=== PATIENT | male | born 1970 | race Caucasian/White ===

== ENCOUNTER 2016-08-23 09:14 | Emergency (ER) | payer OTHER ==
[2016-08-23 09:19] VITALS: RESP 17
--- NOTE | 2016-08-23 09:42 | ED ---
General Adult HPI - General Chief complaint: Extremity Injury, Lower Stated complaint: Rt knee pain Time Seen by Provider: 08/23/16 09:30 Source: patient, RN notes reviewed Mode of arrival: ambulatory Limitations: no limitations - History of Present Illness Initial comments: Patient 46-year-old male who presents emergency room today with a chief complaint of swelling to the right knee. He does admit that he missed work the last 2 days. States that his work stated that he needed a work note return to work that is the reason that he came here today. He does admit that he's had chronic infections to the right knee. States recently finished an antibiotic. States the swelling has improved. States he feels that he is comfortable to go back to work at this time. He does admit that he is trying follow-up with orthopedics. He states [facility] will not [facility] him he is waiting for his insurance to switch to go to a new doctor. Patient denies any other complaints or symptoms. He denies any injury or trauma to the area. Patient denies any recent fever, chills, shortness of breath, chest pain, back pain, abdominal pain, nausea or vomiting, numbness or tingling, dysuria or hematuria, constipation or diarrhea, headaches or visual changes, or any other complaints. - Related Data Previous Rx's Medication Instructions Recorded Sulfamethox-Tmp 800-160Mg [Bactrim 1 tab PO Q12HR #28 tab 08/23/16 DS 800-160 mg] Allergies Allergy/AdvReac Type Severity Reaction Status Date / Time No Known Allergies Allergy Verified 08/23/16 09:29 Review of Systems ROS Statement: Those systems with pertinent positive or pertinent negative responses have been documented in the HPI. ROS Other: All systems not noted in ROS Statement are negative. Past Medical History Additional Past Medical History / Comment(s): chronic back pain History of Any Multi-Drug Resistant Organisms: MRSA Date of last positivie culture/infection: 07/07/2015 MDRO Source:: right knee Additional Past Surgical History / Comment(s): right knee Past Psychological History: No Psychological Hx Reported Smoking Status: Current every day smoker Past Alcohol Use History: None Reported Past Drug Use History: None Reported General Exam - General Exam Comments Initial Comments: General: The patient is awake and alert, in no distress, and does not appear acutely ill. Neck: The neck is supple, there is no tenderness or JVD. Cardiovascular: There is a regular rate and rhythm. No murmur, rub or gallop is appreciated. Respiratory: Lungs are clear to auscultation, respirations are non-labored, breath sounds are equal. No wheezes, stridor, rales, or rhonchi. Musculoskeletal: Patient does have some mild swelling compared bilaterally. No bony tenderness on exam. Shows full range motion. Sensation intact pulses equal bilaterally 2+. Strength 5/5. Neurological: A&O x 3. CN II-XII intact, There are no obvious motor or sensory deficits. Coordination appears grossly intact. Speech is normal. Skin: Skin is warm and dry and no rashes or lesions are noted. Psychiatric: Normal mood and affect. Limitations: no limitations Course Vital Signs 08/23/16 09:15 Temperature 97.7 F Pulse Rate 90 Respiratory 17 Rate Blood Pressure 127/79 O2 Sat by Pulse 97 Oximetry Medical Decision Making - Medical Decision Making Patient advised to follow-up with orthopedics. Will be given a prescription for Bactrim to use if symptoms increase or worsen or for any other concerns. Advised to return here for any other complaints. Disposition Clinical Impression: Chronic knee pain Disposition: HOME SELF-CARE Condition: Good Instructions: Knee Pain (ED) Additional Instructions: Please follow-up with orthopedics as soon as possible. Please use antibiotic as prescribed. Please return if any symptoms increase or worsen or for any other concerns. Prescriptions: Sulfamethox-Tmp 800-160Mg [Bactrim DS 800-160 mg] 1 tab PO Q12HR #28 tab Time of Disposition: 09:42
[2016-08-23 10:04] VITALS: BP 124/78; PULSE 56; TEMP 98.4
== END 2016-08-23 10:03 | disposition home or self-care (01) ==
LOC: EC 09:14
DX: G89.29 Other chronic pain (principal); M25.561 Pain in right knee; F17.200 Nicotine dependence, unspecified, uncomplicated; Z86.19 Personal history of other infectious and parasitic diseases
CPT/HCPCS: 99283

== ENCOUNTER 2016-09-05 14:38 | Emergency (ER) | payer OTHER ==
[2016-09-05 14:45] VITALS: BP 126/66; PULSE 65; RESP 18; TEMP 97.8
--- NOTE | 2016-09-05 14:58 | ED ---
General Adult HPI - General Chief complaint: Extremity Problem,Nontraumatic Stated complaint: Knee Pain Time Seen by Provider: 09/05/16 14:45 Source: patient, RN notes reviewed Mode of arrival: ambulatory Limitations: no limitations - History of Present Illness Initial comments: This is a 46-year-old male who presents with chronic right knee pain. Patient states he has noticed some increased swelling and states he had surgery a few years ago to the patella. Patient denies any recent injury. Patient is able to ambulate. Patient is requesting pain medication stating that he cannot get into a pain management doctor for 2 months. Patient states his primary care provider will not give him pain medication. Patient states he has flareups every now and then. Patient denies any numbness/weakness or tingling in the bilateral lower extremities. Patient denies any recent fever, chills, shortness breath, chest pain, abdominal pain, nausea/vomiting/diarrhea, back pain, numbness, tingling, hematuria, headache, or visual changes, or any other complaints. - Related Data Previous Rx's Medication Instructions Recorded Sulfamethox-Tmp 800-160Mg [Bactrim 1 tab PO Q12HR #28 tab 08/23/16 DS 800-160 mg] HYDROcodone/APAP 5-325MG [[place] 1 tab PO Q6HR #7 tab 09/05/16 5-325] Allergies Allergy/AdvReac Type Severity Reaction Status Date / Time No Known Allergies Allergy Verified 09/05/16 14:45 Review of Systems ROS Statement: Those systems with pertinent positive or pertinent negative responses have been documented in the HPI. ROS Other: All systems not noted in ROS Statement are negative. Past Medical History Additional Past Medical History / Comment(s): chronic back pain, KNEE PAIN History of Any Multi-Drug Resistant Organisms: MRSA Date of last positivie culture/infection: 07/07/2015 MDRO Source:: right knee Additional Past Surgical History / Comment(s): right knee Past Psychological History: No Psychological Hx Reported Smoking Status: Current every day smoker Past Alcohol Use History: None Reported Past Drug Use History: None Reported General Exam - General Exam Comments Initial Comments: General: The patient is awake and alert, in no distress, and does not appear acutely ill. Neck: The neck is supple, there is no tenderness or JVD. Cardiovascular: There is a regular rate and rhythm. No murmur, rub or gallop is appreciated. Respiratory: Lungs are clear to auscultation, respirations are non-labored, breath sounds are equal. No wheezes, stridor, rales, or rhonchi. Musculoskeletal: There is mild swelling to the right knee but no erythema or warmth. No sign of infection. Well-healed surgical scar to the right knee. No tenderness on exam. Full range of motion, strength 5/5 and Sensation intact. Posterior tibial pulses 2+ bilaterally. Neurological: A&O x 3. CN II-XII intact, There are no obvious motor or sensory deficits. Coordination appears grossly intact. Speech is normal. Skin: Skin is warm and dry and no rashes or lesions are noted. Psychiatric: Normal mood and affect. Limitations: no limitations Course Vital Signs 09/05/16 14:42 Temperature 97.8 F Pulse Rate 65 Respiratory 18 Rate Blood Pressure 126/66 O2 Sat by Pulse 100 Oximetry Medical Decision Making - Medical Decision Making This is a 46-year-old male presents with right knee pain that is chronic for him. On physical exam patient is able to ambulate. There is mild swelling to the right knee but no erythema or warmth. No sign of infection. Well-healed surgical scar to the right knee. No tenderness on exam. Full range of motion, strength 5/5 and Sensation intact. Posterior tibial pulses 2+ bilaterally. X- ray the right knee was done and reviewed showing: #1 no acute fracture or dislocation. Number to postsurgical change with prepatellar and Cipro Stock Taker soft tissue edema. Reported by Dr. Green. I discussed results with patient. Patient is requesting [place] stating he cannot get into his pain management doctor. I discussed Tylenol, Motrin/ naproxen for pain, ice and heat. I discussed that patient needs to follow-up with the pain management doctor as planned. I discussed return parameters. Patient was given a primary care referral today. Discussed that patient should follow up with PCP in one to 2 days or return to the [facility] for any worsening symptoms or for any further concerns. Patient was receptive to this plan and patient will be discharged home. Disposition Clinical Impression: Chronic pain of right knee Disposition: HOME SELF-CARE Condition: Good Instructions: Knee Pain (ED) Additional Instructions: Please use pain medication as prescribed for breakthrough pain otherwise use Tylenol, Motrin/Aleve. Please use ice for the swelling. Please continue follow -up with pain management doctor. Please follow-up with the primary care physician in one to 2 days or return to the [facility] for any worsening symptoms or any further concerns. Prescriptions: HYDROcodone/APAP 5-325MG [[place] 5-325] 1 tab PO Q6HR #7 tab Referrals: None,Stated [Primary Care Provider] - 1-2 days Patti Joseph MD [REFERRING] - 1-2 days Sadie Vazquez III, MD [STAFF PHYSICIAN] - 1-2 days Time of Disposition: 15:31
--- NOTE | 2016-09-05 15:15 | XR ---
EXAMINATION TYPE: XR knee complete RT DATE OF EXAM: 09/05/2016 3:10 PM COMPARISON: NONE HISTORY: 05/29/2015 FINDINGS: Postsurgical changes are stable. There is mild diffuse osteopenia. Soft tissue edema in the prepatell ar and suprapatellar regions are noted. No acute fracture. No dislocation. IMPRESSION: 1. No acute fracture or dislocation. 2. Postsurgical change with prepatellar and suprapatellar soft tissue edema.
== END 2016-09-05 15:37 | disposition home or self-care (01) ==
LOC: EC 14:38
DX: M25.561 Pain in right knee (principal); G89.29 Other chronic pain; F17.200 Nicotine dependence, unspecified, uncomplicated
CPT/HCPCS: 99283

== ENCOUNTER 2016-10-19 14:57 | Emergency (ER) | payer OTHER ==
[2016-10-19 15:01] VITALS: BP 132/68; PULSE 69; RESP 20; TEMP 97.9
--- NOTE | 2016-10-19 15:33 | ED ---
General Adult HPI - General Chief complaint: Extremity Problem,Nontraumatic Stated complaint: Knee Pain Time Seen by Provider: 10/19/16 15:16 Source: patient, RN notes reviewed Mode of arrival: ambulatory Limitations: no limitations - History of Present Illness Initial comments: This is a 46-year-old male presents with chronic right knee pain. Patient states he had a surgery back in 2011 and has had problems ever since. Patient states a couple years after the surgery he has had metal from the surgery protruding from the right knee. Patient has been dealing with recurrent infection and pain to this right knee chronically. Patient states he has a follow-up with appointment with the original surgeon, but he cannot get into see him until February. Patient has tried multiple local orthopedic offices but they will not see him. Patient states his primary care physician has referred him to a pain management doctor but he is unable to see this doctor for another 2-3 weeks. Patient states his primary care doctor will not prescribe him [place]. Patient states he was recently on a course of Bactrim. Patient states his knee swelling has improved but he still notices some mild swelling. Patient states he is able to ambulate but this is painful. Patient denies any numbness/tingling or weakness. Patient denies any fever or chills. Patient denies any recent fever, chills, shortness breath, chest pain, abdominal pain, nausea/vomiting/diarrhea, back pain, hematuria, headache, or visual changes, or any other complaints. - Related Data Previous Rx's Medication Instructions Recorded Sulfamethox-Tmp 800-160Mg [Bactrim 1 tab PO Q12HR #28 tab 08/23/16 DS 800-160 mg] HYDROcodone/APAP 5-325MG [[place] 1 tab PO Q6HR #7 tab 09/05/16 5-325] HYDROcodone/APAP 5-325MG [[place] 1 tab PO Q6HR #12 tab 10/19/16 5-325] Sulfamethox-Tmp 800-160Mg [Bactrim 1 tab PO Q12HR #20 tab 10/19/16 DS 800-160 mg] Allergies Allergy/AdvReac Type Severity Reaction Status Date / Time No Known Allergies Allergy Verified 10/19/16 15:01 Review of Systems ROS Statement: Those systems with pertinent positive or pertinent negative responses have been documented in the HPI. ROS Other: All systems not noted in ROS Statement are negative. Past Medical History Additional Past Medical History / Comment(s): chronic back pain, KNEE PAIN History of Any Multi-Drug Resistant Organisms: MRSA Date of last positivie culture/infection: 07/07/2015 MDRO Source:: right knee Additional Past Surgical History / Comment(s): right knee Past Psychological History: No Psychological Hx Reported Smoking Status: Current every day smoker Past Alcohol Use History: None Reported Past Drug Use History: None Reported General Exam - General Exam Comments Initial Comments: General: The patient is awake and alert, in no distress, and does not appear acutely ill. Neck: The neck is supple, there is no tenderness or JVD. Cardiovascular: There is a regular rate and rhythm. No murmur, rub or gallop is appreciated. Respiratory: Lungs are clear to auscultation, respirations are non-labored, breath sounds are equal. No wheezes, stridor, rales, or rhonchi. Musculoskeletal: There is mild tenderness to palpation over the anterior aspect of the right knee with mild localized swelling, no erythema or ecchymosis. There is a well-healed surgical scar present. Patient has full range of motion , strength 5/5 and Sensation intact. Posterior tibial pulses 2+ bilaterally. Neurological: A&O x 3. CN II-XII intact, There are no obvious motor or sensory deficits. Coordination appears grossly intact. Speech is normal. Skin: Skin is warm and dry and no rashes or lesions are noted. Psychiatric: Normal mood and affect. Limitations: no limitations Course Vital Signs 10/19/16 14:59 Temperature 97.9 F Pulse Rate 69 Respiratory 20 Rate Blood Pressure 132/68 O2 Sat by Pulse 98 Oximetry Medical Decision Making - Medical Decision Making This is a 46-year-old male patient with chronic right knee pain. On physical exam patient is afebrile and well-appearing EC. There is mild tenderness to palpation over the anterior aspect of the right knee with mild localized swelling, no erythema or ecchymosis. There is a well-healed surgical scar present. Patient has full range of motion, strength 5/5 and Sensation intact. Posterior tibial pulses 2+ bilaterally. Discussed that patient will be put on a short course of antibiotics and given a short course of pain medication. I discussed that he will have to follow up with his pain management doctor for any further pain medication. I discussed return parameters. Discussed use of Motrin and ice and to use [place] only for breakthrough pain.Discussed that patient should follow up with PCP in one to 2 days or return to the [facility] for any worsening symptoms or for any further concerns. Patient was receptive to this plan and patient will be discharged home. Disposition Clinical Impression: Chronic pain of right knee Disposition: HOME SELF-CARE Condition: Good Instructions: Knee Pain (ED) Additional Instructions: Please rest, ice, elevate and use Motrin for the pain. Please use [place] only for breakthrough pain. Please follow-up with her pain management physician for any further pain medication prescriptions. Please take antibiotics as prescribed. Please follow-up with her primary care provider in one to 2 days or return to the [facility] for any worsening symptoms or for any further concerns. Prescriptions: HYDROcodone/APAP 5-325MG [[place] 5-325] 1 tab PO Q6HR #12 tab Sulfamethox-Tmp 800-160Mg [Bactrim DS 800-160 mg] 1 tab PO Q12HR #20 tab Referrals: Doyle Davis MD [Primary Care Provider] - 1-2 days Time of Disposition: 15:33
== END 2016-10-19 15:38 | disposition home or self-care (01) ==
LOC: EC 14:57
DX: G89.29 Other chronic pain (principal); M25.561 Pain in right knee; M79.89 Other specified soft tissue disorders; F17.200 Nicotine dependence, unspecified, uncomplicated; Z98.890 Other specified postprocedural states
CPT/HCPCS: 99283

== ENCOUNTER 2016-11-22 14:28 | Emergency (ER) | payer OTHER ==
[2016-11-22 14:36] VITALS: BP 127/81; PULSE 74; RESP 20; TEMP 99
--- NOTE | 2016-11-22 15:00 | ED ---
Lower Extremity Injury HPI - General Chief Complaint: Extremity Injury, Lower Stated Complaint: rt knee pain Time Seen by Provider: 11/22/16 14:45 Source: patient, RN notes reviewed, old records reviewed Mode of arrival: ambulatory Limitations: no limitations - History of Present Illness Initial Comments: Patient is a 46-year-old male with chief complaint of right knee pain. Patient reports that he had surgery for patella fracture in 2011. Patient states that since then he's had a lot of problems with his knee. states that the hardware in his patella are coming out of the bone and rubbing on the superficial skin. Patient states that he's been off and on antibiotics for the past year. He states that he occasionally to have pain medicine from an emergency room physician because his primary care provider will not write him for anything. He states that he does have an appointment with his original orthopedic up with the wires in his leg at the end of February. Patient states that he has not been able to see them until then. - Related Data Previous Rx's Medication Instructions Recorded HYDROcodone/APAP 5-325MG [[place] 1 tab PO Q6HR PRN #12 tab 11/22/16 5-325] Sulfamethox-Tmp 800-160Mg [Bactrim 1 tab PO Q12HR #14 tab 11/22/16 DS 800-160 mg] Allergies Allergy/AdvReac Type Severity Reaction Status Date / Time No Known Allergies Allergy Verified 11/22/16 14:36 Review of Systems ROS Statement: Those systems with pertinent positive or pertinent negative responses have been documented in the HPI. ROS Other: All systems not noted in ROS Statement are negative. Past Medical History Additional Past Medical History / Comment(s): chronic back pain, KNEE PAIN History of Any Multi-Drug Resistant Organisms: MRSA Date of last positivie culture/infection: 07/07/2015 MDRO Source:: right knee Additional Past Surgical History / Comment(s): right knee Past Psychological History: No Psychological Hx Reported Smoking Status: Current every day smoker Past Alcohol Use History: None Reported Past Drug Use History: None Reported General Exam Limitations: no limitations General appearance: alert, in no apparent distress Head exam: Present: atraumatic, normocephalic, normal inspection Eye exam: Present: normal appearance, PERRL, EOMI. Absent: scleral icterus, conjunctival injection, periorbital swelling ENT exam: Present: normal exam, mucous membranes moist Neck exam: Present: normal inspection. Absent: tenderness, meningismus, lymphadenopathy Respiratory exam: Present: normal lung sounds bilaterally. Absent: respiratory distress, wheezes, rales, rhonchi, stridor Cardiovascular Exam: Present: regular rate, normal rhythm, normal heart sounds. Absent: systolic murmur, diastolic murmur, rubs, gallop, clicks GI/Abdominal exam: Present: soft, normal bowel sounds. Absent: distended, tenderness, guarding, rebound, rigid Extremities exam: Present: normal inspection, full ROM, normal capillary refill. Absent: tenderness, pedal edema, joint swelling, calf tenderness Right Upper Leg exam: Present: normal inspection, full ROM Knee exam: Present: full ROM, tenderness (Tenderness and swelling of her suprapatellar area.), swelling, deformity. Absent: normal inspection Lower Leg exam: Present: normal inspection, full ROM Ankle exam: Present: normal inspection, full ROM Foot/Toe exam: Present: normal inspection, full ROM Neurovascular tendon exam: Present: no vascular compromise Gait: observed and normal Back exam: Present: normal inspection Neurological exam: Present: alert, oriented X3, CN II-XII intact Psychiatric exam: Present: normal affect, normal mood Skin exam: Present: warm, dry, intact, normal color. Absent: rash Course Vital Signs 11/22/16 14:33 Temperature 99 F Pulse Rate 74 Respiratory 20 Rate Blood Pressure 127/81 O2 Sat by Pulse 98 Oximetry Medical Decision Making - Medical Decision Making Patient is a 46-year-old male with chief complaint of right knee pain. Patient reports that he had surgery for patella fracture in 2011. Patient states that since then he's had a lot of problems with his knee. states that the hardware in his patella are coming out of the bone and rubbing on the superficial skin. Patient states that he's been off and on antibiotics for the past year. He states that he occasionally to have pain medicine from an emergency room physician because his primary care provider will not write him for anything. He states that he does have an appointment with his original orthopedic up with the wires in his leg at the end of February. Patient's x-ray shows evidence of previous surgery. No evidence of any acute changes. Patient' s knee does have full range of motion. DTRs intact. Patient has 2+ dorsalis pedis pulses. Normal sensation in the lower leg. Patient is warm and there is some significant swelling in the knee. Patient case discussed with Dr. White. The patient on medication for breakthrough pain. Discussed close follow-up with his orthopedic physician. Patient is still concerning may be some infection. Discussed that no significant signs of infection at this time however I will write the patient for Bactrim and he is to use PRESCRIPTION for the next few days if he gets worse to start taking. Patient agrees to treat plan will comply. Return parameters were discussed. - Radiology Data Radiology results: report reviewed X-ray shows no acute fracture dislocation. Disposition Clinical Impression: Right knee pain, Suprapatellar bursitis of right knee Disposition: HOME SELF-CARE Condition: Good Instructions: Knee Pain (ED) Additional Instructions: Patient is to follow-up with her orthopedic is soft. Patient needs to rest, ice and elevate extremity. Take pain medication only for breakthrough pain continue use Motrin. Patient should return to the emergency department if there are any fever or chills or significant redness over the knee. Prescriptions: HYDROcodone/APAP 5-325MG [[place] 5-325] 1 tab PO Q6HR PRN #12 tab PRN Reason: Pain Sulfamethox-Tmp 800-160Mg [Bactrim DS 800-160 mg] 1 tab PO Q12HR #14 tab Referrals: Doyle Davis MD [Primary Care Provider] - 1-2 days Time of Disposition: 15:30
--- NOTE | 2016-11-22 15:24 | XR ---
EXAMINATION TYPE: XR knee complete RT DATE OF EXAM: 11/22/2016 3:13 PM CLINICAL HISTORY: Right knee pain. History of patellar fracture. TECHNIQUE: Three views of the right knee are obtained. COMPARISON: Right knee x-ray September 05, 2016 FINDINGS: There is no new acute fracture/dislocation evident in right knee. Fixating screw and cercl age wires through subacute or chronic comminuted patellar fracture are redemonstrated. There is mild tricompartment joint space loss redemonstrated. Mild spurring patellofemoral compartment is seen. Mil d to moderate anterior soft tissue swelling is noted. IMPRESSION: There is no new acute fracture or dislocation in the right knee.
== END 2016-11-22 15:32 | disposition home or self-care (01) ==
LOC: EC 14:28
DX: M70.41 Prepatellar bursitis, right knee (principal); M25.561 Pain in right knee; F17.200 Nicotine dependence, unspecified, uncomplicated; Z98.890 Other specified postprocedural states; Y93.89 Activity, other specified
CPT/HCPCS: 99284

== ENCOUNTER 2016-12-05 12:33 | Emergency (ER) | payer OTHER ==
[2016-12-05 12:47] VITALS: BP 122/67; PULSE 75; RESP 18; TEMP 97.2
--- NOTE | 2016-12-05 13:02 | ED ---
Lower Extremity Injury HPI - General Chief Complaint: Extremity Injury, Lower Stated Complaint: Right Knee Pain Time Seen by Provider: 12/05/16 12:37 Source: patient, RN notes reviewed Mode of arrival: ambulatory Limitations: no limitations - History of Present Illness Initial Comments: 46-year-old male presents emergency department for chronic knee pain. Patient has ongoing issue with his right knee after having patellar tendon rupture and surgery. Patient's had battles with infections in recurrent joint effusions. Patient has been to the ER and states he has been to multiple ERs because his primary care physician does not uses insurance anymore. Patient states his breathing. Patient states he was told is in the seen by pain management though he has not been. Patient has appointment with his surgeon in February. He states this was the soonest appointment that he could have further office. Patient states that his surgeon is out of [facility]. Patient denies any trauma. Patient states this has chronic pain from this. Patient denies any paresthesias. Patient offers no complaints. - Related Data Previous Rx's Medication Instructions Recorded HYDROcodone/APAP 5-325MG [[place] 1 tab PO Q6HR PRN #12 tab 11/22/16 5-325] Sulfamethox-Tmp 800-160Mg [Bactrim 1 tab PO Q12HR #14 tab 11/22/16 DS 800-160 mg] Hydrocodone/Acetaminophen [[place] 1 tab PO Q6HR PRN #15 tab 12/05/16 5-325] Allergies Allergy/AdvReac Type Severity Reaction Status Date / Time No Known Allergies Allergy Verified 11/22/16 14:36 Review of Systems ROS Statement: Those systems with pertinent positive or pertinent negative responses have been documented in the HPI. ROS Other: All systems not noted in ROS Statement are negative. Past Medical History Additional Past Medical History / Comment(s): chronic back pain, KNEE PAIN History of Any Multi-Drug Resistant Organisms: MRSA Date of last positivie culture/infection: 07/07/2015 MDRO Source:: right knee Additional Past Surgical History / Comment(s): right knee Past Psychological History: No Psychological Hx Reported Smoking Status: Current every day smoker Past Alcohol Use History: None Reported Past Drug Use History: None Reported General Exam Limitations: no limitations General appearance: alert, in no apparent distress Respiratory exam: Present: normal lung sounds bilaterally. Absent: respiratory distress, wheezes, rales, rhonchi, stridor Cardiovascular Exam: Present: regular rate, normal rhythm, normal heart sounds. Absent: systolic murmur, diastolic murmur, rubs, gallop, clicks Extremities exam: Present: full ROM (Mild discomfort), other (Minimal swelling of the joint). Absent: normal inspection (Old surgical scar noted) Skin exam: Present: warm, dry Course Vital Signs 12/05/16 12:45 Temperature 97.2 F L Pulse Rate 75 Respiratory 18 Rate Blood Pressure 122/67 O2 Sat by Pulse 97 Oximetry Medical Decision Making - Medical Decision Making 46-year-old male presented for right knee pain. Patient's pain is chronic in nature. I did have discussion with the patient regarding his frequent hospital visits to multiple ERs. He did admit to this. He states that he cannot see his primary care physician due to his insurance reasons. I did offer him multiple pain management sites including Dr. Yuriy Ruiz and a primary care physician environmental aid Dr. Hayden. Patient agrees to this plan. He does understand that it appears that he is drug-seeking. Patient will follow-up with his surgeon as scheduled appointment. Return parameters were discussed. Disposition Clinical Impression: Chronic patellofemoral pain of right knee Disposition: HOME SELF-CARE Condition: Stable Instructions: Knee Pain (ED) Additional Instructions: Please follow up with primary care physician or pain management for further pain medication.Please return to the Emergency Department if symptoms worsen or any other concerns. Prescriptions: Hydrocodone/Acetaminophen [[place] 5-325] 1 tab PO Q6HR PRN #15 tab PRN Reason: Pain Referrals: Patti Joseph MD [REFERRING] - 1-2 days Fredy Ruiz MD [STAFF PHYSICIAN] - 1-2 days Gina Yan MD [STAFF PHYSICIAN] - 1-2 days Time of Disposition: 13:01
== END 2016-12-05 13:14 | disposition home or self-care (01) ==
LOC: EC 12:33
DX: G89.29 Other chronic pain (principal); M25.561 Pain in right knee; M25.461 Effusion, right knee; F17.200 Nicotine dependence, unspecified, uncomplicated; Z86.14 Personal history of Methicillin resistant Staphylococcus aureus infection
CPT/HCPCS: 99283

== ENCOUNTER 2016-12-12 12:24 | Emergency (ER) | payer OTHER ==
[2016-12-12 12:56] VITALS: BP 136/80; PULSE 78; RESP 16; TEMP 98.6
--- NOTE | 2016-12-12 13:09 | ED ---
Lower Extremity Injury HPI - General Chief Complaint: Extremity Injury, Lower Stated Complaint: Right Knee Pain Time Seen by Provider: 12/12/16 12:57 Source: patient, RN notes reviewed Mode of arrival: ambulatory Limitations: no limitations - History of Present Illness Initial Comments: Patient is a 46-year-old male presents emergency room for evaluation of right chronic knee pain. Patient states in 2011 he had a patellar tendon rupture and needed surgery. Patient states been having ongoing pain ever since. Patient has had issues with infections and recurrent joint effusions. Patient states he 's been to the emergency room multiple times because his primary care provider will not take his insurance. Patient states orthopedic associates will not see him. Patient states today this past week and he was doing a lot of work on his knee and noticed swelling. Patient states he thinks he needs to be placed on antibiotics again. Patient states he was recently placed on antibiotics the beginning of this month. Patient has not seen a pain management nurse practitioner yet. Patient states the soonest appointment with his surgeon is not until February. Patient states that his surgeon is out of [facility]. Patient denies any trauma. Patient denies any paresthesias. Patient offers no complaints. Patient denies fevers or chills. Patient denies recent trauma or reinjury to his knee. - Related Data Previous Rx's Medication Instructions Recorded HYDROcodone/APAP 5-325MG [[place] 1 tab PO Q6HR PRN #12 tab 11/22/16 5-325] Sulfamethox-Tmp 800-160Mg [Bactrim 1 tab PO Q12HR #14 tab 11/22/16 DS 800-160 mg] Hydrocodone/Acetaminophen [[place] 1 tab PO Q6HR PRN #15 tab 12/05/16 5-325] Cephalexin [Keflex] 500 mg PO Q6HR #40 cap 12/12/16 Allergies Allergy/AdvReac Type Severity Reaction Status Date / Time No Known Allergies Allergy Verified 12/12/16 12:56 Review of Systems ROS Statement: Those systems with pertinent positive or pertinent negative responses have been documented in the HPI. ROS Other: All systems not noted in ROS Statement are negative. Past Medical History Additional Past Medical History / Comment(s): chronic back pain, KNEE PAIN History of Any Multi-Drug Resistant Organisms: MRSA Date of last positivie culture/infection: 07/07/2015 MDRO Source:: right knee Additional Past Surgical History / Comment(s): right knee Past Psychological History: No Psychological Hx Reported Smoking Status: Current every day smoker Past Alcohol Use History: None Reported Past Drug Use History: None Reported General Exam - General Exam Comments Initial Comments: Sitting in exam room, no acute distress. Limitations: no limitations General appearance: alert, in no apparent distress Head exam: Present: atraumatic, normocephalic, normal inspection Eye exam: Present: normal appearance ENT exam: Present: normal exam Neck exam: Present: normal inspection Respiratory exam: Absent: respiratory distress Right Knee exam: Present: full ROM, tenderness. Absent: normal inspection (There is mild tenderness to palpation over the anterior aspect of the right knee with mild localized swelling, no erythema or ecchymosis. Well-healed surgical scar present over anterior patella. Strength 5/5 and Sensation intact. ) Lower Leg exam: Present: normal inspection Ankle exam: Present: normal inspection Foot/Toe exam: Present: normal inspection Neurovascular tendon exam: Present: no vascular compromise. Absent: pulse deficit (2+ dorsal pedal and posterior tibial pulses), abnormal cap refill ( Capillary refill less than 2 seconds) Gait: observed and normal Back exam: Present: normal inspection Neurological exam: Present: alert, oriented X3, CN II-XII intact Psychiatric exam: Present: normal affect, normal mood Skin exam: Present: warm, dry, intact, normal color. Absent: rash Course Vital Signs 12/12/16 12:53 Temperature 98.6 F Pulse Rate 78 Respiratory 16 Rate Blood Pressure 136/80 O2 Sat by Pulse 99 Oximetry Medical Decision Making - Medical Decision Making Patient is a 46-year-old male presents to the emergency room for evaluation of chronic right knee pain. Patient has been here multiple times for the same complaint. Patient was here twice already this month. Patient was given pain medications both visits. Patient does appear to have drug seeking behavior. I did discuss with patient that he would not be receiving any pain medications today. Discussed with patient that he needs to either follow up with his primary care provider, pain management nurse practitioner or surgeon for pain management and further evaluation. Patient was placed on Bactrim beginning of this month. I will place patient on Keflex prophylactically. No joint effusion noted. Patient has full range of motion of his knee. No lymphangitis noted. No cellulitis noted. Vital adalid are stable. Patient is afebrile. Patient states he understands everything that was discussed with him. Return parameters discussed. Case discussed with Dr. Gamboa. Disposition Clinical Impression: Chronic patellofemoral pain of right knee Disposition: HOME SELF-CARE Condition: Good Instructions: Knee Pain (ED) Additional Instructions: Take antibiotics as directed. Take Tylenol or Motrin as needed for pain. Please follow up with excel specialist. If any new symptom arises or symptoms worsen, return to ER as soon as possible. Prescriptions: Cephalexin [Keflex] 500 mg PO Q6HR #40 cap Referrals: Joshua Redman MD [STAFF PHYSICIAN] - 1-2 days Time of Disposition: 13:08
== END 2016-12-12 13:29 | disposition home or self-care (01) ==
LOC: EC 12:24
DX: G89.29 Other chronic pain (principal); M25.561 Pain in right knee; F17.200 Nicotine dependence, unspecified, uncomplicated
CPT/HCPCS: 99283

== ENCOUNTER 2016-12-15 01:26 | Emergency (ER) | payer OTHER ==
[2016-12-15] MEDS ORDERED: SODIUM CHLORIDE 0.9% 1,000 ML IV STA (01:43)
--- NOTE | 2016-12-15 01:53 | ED ---
General Adult HPI - General Chief complaint: Weakness Stated complaint: fatigue,dizziness Time Seen by Provider: 12/15/16 01:42 Source: patient, RN notes reviewed, old records reviewed Mode of arrival: ambulatory Limitations: no limitations - History of Present Illness Initial comments: This is a 46-year-old male presents emergency Department with chief complaint of dizziness and weakness in his bilateral legs. Patient reports that he is only had the symptoms for the past 3-4 hours. He reports he's had a normal day. He did do a workout earlier this morning nothing more than usual. Patient states that over the past 3-4 hours just feels somewhat dizzy and lightheaded. He reports that the dizziness lightheadedness seems to be related to position or whenever he is walking. He denies any other symptoms including abdominal pain, chest pain, shortness of breath, nausea, vomiting, diarrhea, melena or hematochezia. Patient reports he does have a history of right knee infections. He is currently on Keflex and doing much better. Patient states that he was seen 2 days ago and started on his antibiotics. - Related Data Previous Rx's Medication Instructions Recorded Cephalexin [Keflex] 500 mg PO Q6HR #40 cap 12/12/16 Allergies Allergy/AdvReac Type Severity Reaction Status Date / Time No Known Allergies Allergy Verified 12/17/16 10:54 Review of Systems ROS Statement: Those systems with pertinent positive or pertinent negative responses have been documented in the HPI. ROS Other: All systems not noted in ROS Statement are negative. Past Medical History Additional Past Medical History / Comment(s): chronic back pain, KNEE PAIN History of Any Multi-Drug Resistant Organisms: MRSA Date of last positivie culture/infection: 07/07/2015 MDRO Source:: right knee Additional Past Surgical History / Comment(s): right knee Past Psychological History: No Psychological Hx Reported Smoking Status: Current every day smoker Past Alcohol Use History: None Reported Past Drug Use History: None Reported General Exam - General Exam Comments Initial Comments: Physical 46-year-old male. No acute distress. Limitations: no limitations General appearance: alert, in no apparent distress Head exam: Present: atraumatic, normocephalic, normal inspection Eye exam: Present: normal appearance ENT exam: Present: normal exam, mucous membranes moist Neck exam: Present: normal inspection. Absent: tenderness, meningismus, lymphadenopathy Respiratory exam: Present: normal lung sounds bilaterally. Absent: respiratory distress, wheezes, rales, rhonchi, stridor Cardiovascular Exam: Present: regular rate, normal rhythm, normal heart sounds. Absent: systolic murmur, diastolic murmur, rubs, gallop, clicks GI/Abdominal exam: Present: soft, normal bowel sounds. Absent: distended, tenderness, guarding, rebound, rigid Extremities exam: Present: normal inspection, full ROM, normal capillary refill , other (Right knee has evidence of previous scar.). Absent: tenderness, pedal edema, joint swelling, calf tenderness Back exam: Present: normal inspection Neurological exam: Present: alert, oriented X3, CN II-XII intact Psychiatric exam: Present: normal affect, normal mood Skin exam: Present: warm, dry, intact, normal color. Absent: rash Course Vital Signs 12/15/16 12/15/16 12/15/16 01:35 01:38 02:38 Temperature 97.5 F L Pulse Rate 77 66 66 Respiratory 18 16 16 Rate Blood Pressure 109/60 99/56 106/60 O2 Sat by Pulse 97 100 94 L Oximetry 12/15/16 03:46 Temperature 97.6 F Pulse Rate 81 Respiratory 18 Rate Blood Pressure 108/65 O2 Sat by Pulse 94 L Oximetry - Reevaluation(s) Reevaluation #1: 12/15/16 03:27 Patient is reevaluated and is sleeping comfortably in bed. Patient was awoken informed all lab results are normal. Patient will be discharged at this time. Medical Decision Making - Medical Decision Making This is a 46-year-old male presents emergency room with a few hours of fatigue and dizziness. Patient received IV fluids and lab work was obtained. EKG is normal. Chest x-ray is also normal. He reports that his both his legs seemed to be weak and tired. Patient was seen multiple times ambulate throughout the emergency department. No evidence of significant weakness or unable to ambulate. Patient lab work was all negative. Patient will be discharged at this time. Advised follow-up with primary care provider. Continue antibiotics as previous a prescribed a few days ago for his knee. Patient agrees to treatment plan will comply. Return parameters were discussed. - Lab Data Result diagrams: 12/15/16 01:52 12/15/16 01:52 Lab Results 12/15/16 12/15/16 12/15/16 Range/Units 01:52 01:52 01:52 WBC (3.8-10.6) k/uL RBC (4.30-5.90) m/uL Hgb (13.0-17.5) gm/dL Hct (39.0-53.0) % MCV (80.0-100.0) fL MCH (25.0-35.0) pg MCHC (31.0-37.0) g/dL RDW (11.5-15.5) % Plt Count (150-450) k/uL Neutrophils % % Lymphocytes % % Monocytes % % Eosinophils % % Basophils % % Neutrophils # (1.3-7.7) k/uL Lymphocytes # (1.0-4.8) k/uL Monocytes # (0-1.0) k/uL Eosinophils # (0-0.7) k/uL Basophils # (0-0.2) k/uL PT (9.0-12.0) sec INR (<1.1) APTT (22.0-30.0) sec D-Dimer (<0.60) mg/L FEU Sodium 140 (137-145) mmol/L Potassium 3.6 (3.5-5.1) mmol/L Chloride 110 H (98-107) mmol/L Carbon Dioxide 23 (22-30) mmol/L Anion Gap 7 mmol/L BUN 15 (9-20) mg/dL Creatinine 1.00 (0.66-1.25) mg/dL Est GFR (MDRD) Af Amer >60 (>60 ml/min/1.73 sqM) Est GFR (MDRD) Non-Af >60 (>60 ml/min/1.73 sqM) Glucose 104 H (74-99) mg/dL Calcium 8.9 (8.4-10.2) mg/dL Magnesium 2.2 (1.6-2.3) mg/dL Total Bilirubin 0.5 (0.2-1.3) mg/dL AST 23 (17-59) U/L ALT 27 (21-72) U/L Alkaline Phosphatase 78 (38-126) U/L Total Creatine Kinase 201 H (55-170) U/L CK-MB (CK-2) 1.3 (0.0-2.4) ng/mL CK-MB (CK-2) Rel Index 0.6 Troponin I <0.012 (0.000-0.034) ng/mL Total Protein 5.6 L (6.3-8.2) g/dL Albumin 3.4 L (3.5-5.0) g/dL Urine Color Urine Appearance (Clear) Urine pH (5.0-8.0) Ur Specific [place] (1.001-1.035) Urine Protein (Negative) Urine Glucose (UA) (Negative) Urine Ketones (Negative) Urine Blood (Negative) Urine Nitrite (Negative) Urine Bilirubin (Negative) Urine Urobilinogen (<2.0) mg/dL Ur Leukocyte Esterase (Negative) Urine Opiates Screen Not Detected (NotDetected) Ur Oxycodone Screen Not Detected (NotDetected) Urine Methadone Screen Not Detected (NotDetected) Ur Propoxyphene Screen Not Detected (NotDetected) Ur Barbiturates Screen Not Detected (NotDetected) U Tricyclic Antidepress Not Detected (NotDetected) Ur Phencyclidine Scrn Not Detected (NotDetected) Ur Amphetamines Screen Not Detected (NotDetected) U Methamphetamines Scrn Not Detected (NotDetected) U Benzodiazepines Scrn Not Detected (NotDetected) Urine Cocaine Screen Not Detected (NotDetected) U Marijuana (THC) Screen Detected H (NotDetected) Serum Alcohol <10 mg/dL 12/15/16 12/15/16 12/15/16 Range/Units 01:52 01:52 01:52 WBC 7.4 (3.8-10.6) k/uL RBC 4.17 L (4.30-5.90) m/uL Hgb 13.0 (13.0-17.5) gm/dL Hct 38.1 L (39.0-53.0) % MCV 91.6 (80.0-100.0) fL MCH 31.3 (25.0-35.0) pg MCHC 34.2 (31.0-37.0) g/dL RDW 13.4 (11.5-15.5) % Plt Count 247 (150-450) k/uL Neutrophils % 70 % Lymphocytes % 19 % Monocytes % 5 % Eosinophils % 3 % Basophils % 1 % Neutrophils # 5.2 (1.3-7.7) k/uL Lymphocytes # 1.4 (1.0-4.8) k/uL Monocytes # 0.4 (0-1.0) k/uL Eosinophils # 0.2 (0-0.7) k/uL Basophils # 0.1 (0-0.2) k/uL PT 9.5 (9.0-12.0) sec INR 0.9 (<1.1) APTT 25.9 (22.0-30.0) sec D-Dimer 0.58 (<0.60) mg/L FEU Sodium (137-145) mmol/L Potassium (3.5-5.1) mmol/L Chloride (98-107) mmol/L Carbon Dioxide (22-30) mmol/L Anion Gap mmol/L BUN (9-20) mg/dL Creatinine (0.66-1.25) mg/dL Est GFR (MDRD) Af Amer (>60 ml/min/1.73 sqM) Est GFR (MDRD) Non-Af (>60 ml/min/1.73 sqM) Glucose (74-99) mg/dL Calcium (8.4-10.2) mg/dL Magnesium (1.6-2.3) mg/dL Total Bilirubin (0.2-1.3) mg/dL AST (17-59) U/L ALT (21-72) U/L Alkaline Phosphatase (38-126) U/L Total Creatine Kinase (55-170) U/L CK-MB (CK-2) (0.0-2.4) ng/mL CK-MB (CK-2) Rel Index Troponin I (0.000-0.034) ng/mL Total Protein (6.3-8.2) g/dL Albumin (3.5-5.0) g/dL Urine Color Yellow Urine Appearance Clear (Clear) Urine pH 5.5 (5.0-8.0) Ur Specific [place] 1.016 (1.001-1.035) Urine Protein Negative (Negative) Urine Glucose (UA) Negative (Negative) Urine Ketones Negative (Negative) Urine Blood Negative (Negative) Urine Nitrite Negative (Negative) Urine Bilirubin Negative (Negative) Urine Urobilinogen <2.0 (<2.0) mg/dL Ur Leukocyte Esterase Negative (Negative) Urine Opiates Screen (NotDetected) Ur Oxycodone Screen (NotDetected) Urine Methadone Screen (NotDetected) Ur Propoxyphene Screen (NotDetected) Ur Barbiturates Screen (NotDetected) U Tricyclic Antidepress (NotDetected) Ur Phencyclidine Scrn (NotDetected) Ur Amphetamines Screen (NotDetected) U Methamphetamines Scrn (NotDetected) U Benzodiazepines Scrn (NotDetected) Urine Cocaine Screen (NotDetected) U Marijuana (THC) Screen (NotDetected) Serum Alcohol mg/dL 12/15/ 02:25 EKG shows normal sinus rhythm. The joint rate 16 bpm. Verbal 196 seconds. Dressed duration 94 mg. QT QTc is 400/45 ms. Noted test elevation or T-wave inversion. No evidence of atrial or ventricular arrhythmias. - Radiology Data Radiology results: report reviewed X-rays negative for acute process. Disposition Clinical Impression: Fatigue, Chronic patellofemoral pain of right knee Disposition: HOME SELF-CARE Condition: Good Instructions: Weakness (ED), Fatigue (ED) Additional Instructions: Patient advised to rest, increase fluids. Follow-up with her primary care provider tomorrow. Return to emergency department if any alarming signs or symptoms occur. Referrals: Doyle Davis MD [Primary Care Provider] - 1-2 days Time of Disposition: 03:29
--- NOTE | 2016-12-15 02:13 | XR ---
EXAM: XR Chest, 2 Views CLINICAL HISTORY: Reason: Weakness TECHNIQUE: Frontal and lateral views of the chest. COMPARISON: No relevant prior studies available. FINDINGS: Lungs: Unremarkable. No consolidation. Pleural space: Unremarkable. No pneumothorax. Heart: Unremarkable. No cardiomegaly. Mediastinum: Unremarkable. Bones/joints: Unremarkable. IMPRESSION: No evidence of acute cardiopulmonary disease.
[2016-12-15 02:18] LABS: Appearance,Urine Clear (Clear); Bilirubin,Urine Negative (Negative); Glucose,Urine (UA) Negative (Negative); Ketones,Urine Negative (Negative); Leukocyte Esterase,Urine Negative (Negative); Nitrite,Urine Negative (Negative); PH, Urine 5.5 (5.0-8.0); Protein,Urine Negative (Negative); Specific Gravity,Urine 1.016 (1.001-1.035); UA Billing (MACRO vs. MICRO) CHEM; Urobilinogen,Urine <2.0 mg/dL (<2.0)
[2016-12-15 02:21] LABS: Basophils # (A) 0.1 k/uL (0-0.2); Basophils % (A) 1 %; CH 31.2; CHCM 34.2; Eosinophils # (A) 0.2 k/uL (0-0.7); Eosinophils % (A) 3 %; HCT 38.1 % (39.0-53.0); Luc # (Auto) 0.09; Luc % (Auto) 1; Lymphocytes # (A) 1.4 k/uL (1.0-4.8); Lymphocytes % (A) 19 %; MCH 31.3 pg (25.0-35.0); MCHC 34.2 g/dL (31.0-37.0); MCV 91.6 fL (80.0-100.0); Mean Platelet Volume 7.2; Monocytes # (A) 0.4 k/uL (0-1.0); Monocytes % (A) 5 %; Neutrophils # (A) 5.2 k/uL (1.3-7.7); Neutrophils % (A) 70 %; RBC 4.17 m/uL (4.30-5.90); RDW 13.4 % (11.5-15.5); WBC 7.4 k/uL (3.8-10.6); WBC (Perox) 7.53
[2016-12-15 02:28] LABS: ALT 27 U/L (21-72); AST 23 U/L (17-59); Alcohol <10 mg/dL; Alkaline Phosphatase 78 U/L (38-126); Anion Gap 7 mmol/L; Blood Urea Nitrogen 15 mg/dL (9-20); Calcium 8.9 mg/dL (8.4-10.2); Carbon Dioxide 23 mmol/L (22-30); Chloride 110 mmol/L (98-107); Glucose 104 mg/dL (74-99); Magnesium 2.2 mg/dL (1.6-2.3); Non-African American GFR(MDRD) >60 (>60 ml/min/1.73 sqM); Potassium 3.6 mmol/L (3.5-5.1); Sodium 140 mmol/L (137-145); Total Bilirubin 0.5 mg/dL (0.2-1.3); Total Protein 5.6 g/dL (6.3-8.2)
[2016-12-15 02:31] LABS: Partial Thromboplastin Time 25.9 sec (22.0-30.0)
[2016-12-15 02:33] LABS: INR 0.9 (<1.1); Prothrombin Time 9.5 sec (9.0-12.0)
[2016-12-15 02:41] LABS: Creatine Kinase 201 U/L (55-170)
[2016-12-15 02:54] LABS: Creatine Kinase MB 1.3 ng/mL (0.0-2.4); Troponin I <0.012 ng/mL (0.000-0.034)
[2016-12-15 03:47] VITALS: BP 108/65; PULSE 81; RESP 18; TEMP 97.6
== END 2016-12-15 03:47 | disposition home or self-care (01) ==
LOC: EC 01:26
DX: M25.561 Pain in right knee (principal); G89.29 Other chronic pain; R53.83 Other fatigue; R42 Dizziness and giddiness; R53.1 Weakness; F17.200 Nicotine dependence, unspecified, uncomplicated; Z98.890 Other specified postprocedural states
CPT/HCPCS: 36415; 71020; 80053; 80306; 80320; 81003; 82550; 82553; 83735; 84484; 85025; 85379; 85610; 85730; 93005; 96360; 96361; 99285

== ENCOUNTER 2016-12-17 03:33 | Inpatient (IN) | payer OTHER ==
[2016-12-17] MEDS ORDERED: KETOROLAC 30 MG/ML 1 ML VIAL IVP STA (04:03)
[2016-12-17 04:23] LABS: Basophils % (A) 1 %; CH 31.3; CHCM 35.1; Eosinophils # (A) 0.2 k/uL (0-0.7); Eosinophils % (A) 2 %; HCT 39.6 % (39.0-53.0); HDW 2.66; HGB 13.9 gm/dL (13.0-17.5); Luc # (Auto) 0.09; Luc % (Auto) 1; Lymphocytes # (A) 1.2 k/uL (1.0-4.8); Lymphocytes % (A) 17 %; MCH 31.3 pg (25.0-35.0); MCV 89.4 fL (80.0-100.0); Mean Platelet Volume 6.8; Monocytes # (A) 0.3 k/uL (0-1.0); Monocytes % (A) 4 %; Neutrophils # (A) 5.4 k/uL (1.3-7.7); Neutrophils % (A) 75 %; RBC 4.43 m/uL (4.30-5.90); RDW 13.4 % (11.5-15.5); WBC 7.2 k/uL (3.8-10.6)
--- NOTE | 2016-12-17 04:27 | ED ---
Extremity Problem HPI - General Chief complaint: Extremity Problem,Nontraumatic Stated complaint: Rt. Knee Pain Time Seen by Provider: 12/17/16 03:49 Source: patient Mode of arrival: ambulatory Limitations: no limitations - History of Present Illness Initial comments: This patient is a 46-year-old man who presents with complaint of right knee burning pain that is been going on for number weeks. He states that there is also a little bit of swelling over the patella. The patient states that he had surgery back in 2011 repair patella fracture, and that since that time he has had intermittent infections of the overlying skin. He states that there is a wire from the surgery that sticks up and sometimes causes infection. The patient has been seen here number of times and has been given a course of Bactrim and then Keflex for the similar symptoms. Patient states that the symptoms seem to be recurring despite the course of antibiotics. The patient is denying systemic symptoms, including no fever or chills, chest pain, palpitations, lightheadedness or syncope, dyspnea, nausea or vomiting. MD Complaint: joint paint -: week(s) Location: right, knee History of Same: Yes Radiation: none Quality: burning Consistency: constant Improves with: nothing Worsens with: nothing Associated Symptoms: denies other symptoms - Related Data Previous Rx's Medication Instructions Recorded HYDROcodone/APAP 5-325MG [[place] 1 each PO Q6HR PRN #20 tab 12/20/16 5-325] Nicotine 14Mg/24Hr Patch [Habitrol] 1 patch TRANSDERM DAILY #30 patch 12/20/16 Allergies Allergy/AdvReac Type Severity Reaction Status Date / Time No Known Allergies Allergy Verified 12/17/16 10:54 Review of Systems ROS Statement: Those systems with pertinent positive or pertinent negative responses have been documented in the HPI. ROS Other: All systems not noted in ROS Statement are negative. Constitutional: Denies: fever, chills Respiratory: Denies: cough, dyspnea Cardiovascular: Denies: chest pain, palpitations, edema, syncope Gastrointestinal: Denies: abdominal pain, nausea, vomiting Musculoskeletal: Reports: joint swelling Skin: Reports: as per HPI, change in color (Erythema) Neurological: Denies: weakness, numbness Past Medical History Additional Past Medical History / Comment(s): chronic back pain, KNEE PAIN History of Any Multi-Drug Resistant Organisms: MRSA Date of last positivie culture/infection: 07/07/2015 MDRO Source:: right knee Additional Past Surgical History / Comment(s): right knee Past Psychological History: No Psychological Hx Reported Smoking Status: Current every day smoker Past Alcohol Use History: None Reported Past Drug Use History: None Reported - Past Family History Mother Family Medical History: No Reported History Father Family Medical History: Musculoskeletal Disorder General Exam Limitations: no limitations General appearance: alert, in no apparent distress Head exam: Present: atraumatic, normocephalic Respiratory exam: Present: normal lung sounds bilaterally. Absent: respiratory distress, wheezes, rales, rhonchi, stridor Cardiovascular Exam: Present: regular rate, normal rhythm, normal heart sounds. Absent: systolic murmur, diastolic murmur, rubs, gallop Extremities exam: Present: normal inspection, normal capillary refill, other ( The patient does have a small amount of swelling over the right patella. There does not appear to be any joint effusion. He has range of motion 0-45. There is a small amount of erythema and warmth overlying the patella.). Absent: pedal edema, calf tenderness Skin exam: Present: warm, dry, erythema. Absent: urticaria, vesicles, petechiae , mottled, abrasion Course Vital Signs 12/17/16 03:40 Temperature 98.0 F Pulse Rate 76 Respiratory 18 Rate Blood Pressure 124/64 O2 Sat by Pulse 98 Oximetry Medical Decision Making - Medical Decision Making Patient's 46-year-old man who has what appears to be infection at site of previous orthopedic surgery he has tried a couple of courses of outpatient medicine and appears to be failing this. We will have the patient admitted for further evaluation including orthopedic consultation. - Lab Data Result diagrams: 12/21/16 07:44 12/21/16 07:44 Lab Results 12/17/16 12/17/16 Range/Units 04:13 04:13 WBC 7.2 (3.8-10.6) k/uL RBC 4.43 (4.30-5.90) m/uL Hgb 13.9 (13.0-17.5) gm/dL Hct 39.6 (39.0-53.0) % MCV 89.4 (80.0-100.0) fL MCH 31.3 (25.0-35.0) pg MCHC 35.0 (31.0-37.0) g/dL RDW 13.4 (11.5-15.5) % Plt Count 233 (150-450) k/uL Neutrophils % 75 % Lymphocytes % 17 % Monocytes % 4 % Eosinophils % 2 % Basophils % 1 % Neutrophils # 5.4 (1.3-7.7) k/uL Lymphocytes # 1.2 (1.0-4.8) k/uL Monocytes # 0.3 (0-1.0) k/uL Eosinophils # 0.2 (0-0.7) k/uL Basophils # 0.0 (0-0.2) k/uL ESR 15 (0-15) mm/hr Sodium 141 (137-145) mmol/L Potassium 3.9 (3.5-5.1) mmol/L Chloride 111 H (98-107) mmol/L Carbon Dioxide 21 L (22-30) mmol/L Anion Gap 9 mmol/L BUN 11 (9-20) mg/dL Creatinine 0.90 (0.66-1.25) mg/dL Est GFR (MDRD) Af Amer >60 (>60 ml/min/1.73 sqM) Est GFR (MDRD) Non-Af >60 (>60 ml/min/1.73 sqM) Glucose 84 (74-99) mg/dL Calcium 8.5 (8.4-10.2) mg/dL C-Reactive Protein 17.8 H (<10.0) mg/L Disposition Clinical Impression: Wound infection Disposition: ADMITTED IP TO THIS HOSP Condition: Fair
[2016-12-17 04:38] LABS: Anion Gap 9 mmol/L; Blood Urea Nitrogen 11 mg/dL (9-20); C Reactive Protein 17.8 mg/L (<10.0); Calcium 8.5 mg/dL (8.4-10.2); Carbon Dioxide 21 mmol/L (22-30); Chloride 111 mmol/L (98-107); Glucose 84 mg/dL (74-99); Non-African American GFR(MDRD) >60 (>60 ml/min/1.73 sqM); Potassium 3.9 mmol/L (3.5-5.1); Sodium 141 mmol/L (137-145)
[2016-12-17 05:51] LABS: Erythrocyte Sedimentation Rate 15 mm/hr (0-15)
[2016-12-17] MEDS ORDERED: IBUPROFEN 400 MG TAB PO PRN (05:51)
[2016-12-17] MEDS ORDERED: NALOXONE 0.4 MG/ML 1 ML VIAL IV PRN (05:51)
[2016-12-17] MEDS ORDERED: ACETAMINOPHEN TAB 325 MG TAB PO PRN (05:51)
[2016-12-17] MEDS ORDERED: IV VANCOMYCIN PER PHARMACY 1 EACH MISC MISCELLANE PRN (05:54)
[2016-12-17 07:21] VITALS: BMI 25.7
[2016-12-17] MEDS: SODIUM CHLORIDE 0.9% 1,000 ML IV SCH (07:36)
[2016-12-17] MEDS: VANCOMYCIN 1,500 MG in SODIUM CHLORIDE 0.9% 250 ML IVPB SCH ×2 (07:37→19:41)
--- NOTE | 2016-12-17 11:21 | P.CNOR ---
History of Present Illness - [facility] Consult date: 12/17/16 Consult reason: joint pain History of present illness: Patient's 46-year-old man who is seen and examined today at bedside. Apparently he had sustained a patella fracture in 2011 and underwent open reduction internal fixation of his right patella fracture in [facility] with Dr. Dav Ambrose. The patient says that he went on to heal but had to spend some time in [place] and then started having infections at his right knee. The infections have been around the anterior aspect of his patella. He had been treated with antibiotics which generally help the infection settle but he says that once the antibiotics are completed that the infection recurs. He says this as had been a number of times over the past several years. He says that he is recently on oral antibiotics but has not been helping him. He has still been able to mobilize and he says that it hurts him when he goes mountain biking. He denies any fevers or chills. Denies any numbness tingling or weakness. Review of Systems Denies any fevers chills night sweats. Denies any recent weight loss. Denies any systemic infection. Denies any numbness tingling his lower extremity. Denies other injuries currently Past Medical History Past Medical History: Musculoskeletal Disorder (History right patella fracture in 2011 with open reduction internal fixation with orthopedics in [place]) Additional Past Medical History / Comment(s): chronic back pain, KNEE PAIN History of Any Multi-Drug Resistant Organisms: MRSA Year Discovered:: 07/07/2015 MDRO Source:: right knee Past Surgical History: Orthopedic Surgery Additional Past Surgical History / Comment(s): right knee Past Psychological History: No Psychological Hx Reported Smoking Status: Current every day smoker Past Alcohol Use History: None Reported Past Drug Use History: None Reported - Past Family History Mother Family Medical History: No Reported History Father Family Medical History: Musculoskeletal Disorder Medications and Allergies Allergies Allergy/AdvReac Type Severity Reaction Status Date / Time No Known Allergies Allergy Verified 12/17/16 10:54 Physical Examination Osteopathic Statement: *. No significant issues noted on an osteopathic structural exam other than those noted in the History and Physical/Consult. - Knee right Appearance: other (At his right knee has a incision anteriorly over his patella midline. There is a area of swelling and erythema approximately 3 x 2 cm with some fluid collection anterior to the patella. There is no apparent effusion at the knee joint itself. He has sustained motion at his knee with full extension and 120 of flexion. He has some tenderness to palpation over his anterior patella. His extensor mechanism is intact with 5 out of 5 strength. He has sustained dorsal flexion plantar flexion and extensor hallucis longus. Calves and thighs soft nontender. Otherwise his exam is essentially normal) Results - Labs Labs: Abnormal Lab Results - Last 24 Hours (Table) 12/17/16 Range/Units 04:13 Chloride 111 H (98-107) mmol/L Carbon Dioxide 21 L (22-30) mmol/L C-Reactive Protein 17.8 H (<10.0) mg/L H & H 12/17/16 Range/Units 04:13 Hgb 13.9 (13.0-17.5) gm/dL Hct 39.6 (39.0-53.0) % Result Diagrams: 12/17/16 04:13 12/17/16 04:13 Assessment and Plan Plan: Right knee infection at the patella with history of fracture and open reduction internal fixation in [address] 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 He has been treated with oral antibiotics but this does not seem to be alleviating the infections [place]. He is currently on IV vancomycin which is appropriate. We'll obtain new imaging with x-rays to further evaluate for appropriate fracture healing. I think his hardware is perpetuating his infection and if he is adequately healed we should remove the hardware and treat him with long-term antibiotics to alleviate the infection fully. Apparently he has an appointment with his doctor in [place] in February but with him here in the hospital now we will consider further treatment based on his imaging and response to the antibiotics. I discussed this with him and with the hospitalist Dr. Moseley and we are in agreement. He does not seem to have involvement of the joint itself. There is no active effusion at the knee and he is able to move his knee well.
--- NOTE | 2016-12-17 11:41 | XR ---
Right knee HISTORY: Infection, patella fracture 3 views of the right knee correlated to prior exam second of November 2016 There is no significant interval change. Postop changes are again noted, there is underlying osteoart hritic change. Alignment is maintained, there is no evident periostitis. Soft tissue swelling is pres ent compatible with possible cellulitis. IMPRESSION: Correlate for edema versus cellulitis.
[2016-12-17] MEDS: KETOROLAC 30 MG/ML 1 ML VIAL IVP PRN (15:41)
[2016-12-17] MEDS ORDERED: ALPRAZolam 0.25 MG TAB PO PRN (16:40)
[2016-12-17] MEDS ORDERED: TEMAZEPAM 15 MG CAP PO PRN (16:40)
[2016-12-17] MEDS ORDERED: HYDROmorphone 1 MG/ML 1 ML SYRINGE IVP PRN (16:40)
[2016-12-17 17:14] LABS: Appearance,Urine Clear (Clear); Bilirubin,Urine Negative (Negative); Glucose,Urine (UA) Negative (Negative); Ketones,Urine Negative (Negative); Leukocyte Esterase,Urine Negative (Negative); Nitrite,Urine Negative (Negative); Protein,Urine Negative (Negative); Specific Gravity,Urine 1.009 (1.001-1.035); UA Billing (MACRO vs. MICRO) CHEM; Urobilinogen,Urine <2.0 mg/dL (<2.0)
--- NOTE | 2016-12-17 17:18 | XR ---
EXAMINATION TYPE: XR chest 1V portable DATE OF EXAM: 12/17/2016 COMPARISON: Prior chest x-ray 15 Dec 2016 HISTORY: COPD TECHNIQUE: Single frontal view of the chest is obtained. FINDINGS: There is no focal air space opacity, pleural effusion, or pneumothorax seen. The cardiac silhouette size is within normal limits. The osseous structures are intact. IMPRESSION: No acute process.
[2016-12-17] MEDS: NICOTINE 14MG/24HR PATCH TRANSDERM SCH (17:42)
[2016-12-17] MEDS: HYDROcodone/APAP 5-325MG 1 EACH TAB PO PRN (19:47)
--- NOTE | 2016-12-17 20:54 | HP ---
DATE OF ADMISSION: 12/17/2016 CHIEF COMPLAINT: Pain and swelling of the right knee and some discharge. HISTORY OF PRESENT ILLNESS: This 46 gentleman with a past history of DJD, history of MRSA, history of nicotine dependence being followed by Dr. Doyle Davis in the outpatient setting apparently had surgery for patellar fracture of the right knee several years ago in [place]. The patient apparently had infections overlying the skin since then. The patient had multiple episodes of abscess formation as well as even extrusion part of the sutures as well and the patient is on multiple antibiotics. Patient recently had a course of Bactrim and Keflex. The symptoms did not chantale. The patient complains of severe pain and swelling of the right knee. The patient came to [facility] and admitted to the hospital for further evaluation and treatment. White count 7.2. There is no history of any fever, rigors or chills. No history of headache, loss of consciousness or seizures. The patient has some difficulty in movement of the right leg also. Orthopedic evaluation in progress. There is no history of any rigors, chills, no history of headache, loss of consciousness or seizures. PAST MEDICAL HISTORY: History of right knee pain, patella fracture repair, history of MRSA, history of nicotine dependence. Recurrent infections and cellulitis and abscess and drainage. Medication prior to admission: Keflex 500 mg q.6 p.r.n. ALLERGIES: None. FAMILY HISTORY: No history of heart disease or strokes in the family. SOCIAL HISTORY: History of smoking. No history of alcohol intake. REVIEW OF SYSTEMS: ENT: No diminishing hearing. No diminished vision. CARDIOVASCULAR: No angina or palpitations. RESPIRATORY: No cough. GI: No nausea. No vomiting. No diarrhea. : No dysuria. Nervous system: No numbness or weakness. Allergy/immunology: No asthma or hayfever. MUSCULOSKELETAL: As mentioned earlier. ( ) as mentioned earlier. HEMATOLOGY/ONCOLOGY: No history of anemia. ENDOCRINE: No history of diabetes or hypothyroidism. CONSTITUTIONAL: As mentioned earlier. DERMATOLOGY: Negative . RHEUMATOLOGY: Negative. PSYCHIATRY: As mentioned earlier. PHYSICAL EXAMINATION: The patient is alert and oriented times three. Pulse 70. Blood pressure 113/70. Respiratory rate 18. Temperature 98.7, pulse ox 97% on room air. HEENT: Conjunctivae normal. Oral mucosa moist. NECK: No jugular venous distention. No carotid bruit. No lymph node enlargement. CARDIOVASCULAR: S1, S2. No S3, no S4. RESPIRATORY: Breath sounds diminished at the bases. No rhonchi. No crackles. ABDOMEN: Soft, nontender. No mass palpable. No hepatosplenomegaly. LEGS: Right leg swelling and tenderness and some fluctuant areas also present. Some erythema also present. History of the features of healed scar also in the anterior part of the patella also present. CENTRAL NERVOUS SYSTEM: Higher functions as mentioned earlier. Moves all four limbs. No focal deficits. LYMPHATICS: No lymph nodes palpable in the neck, axillae or groin. SKIN: No ulcer, rash or bleeding. LABS: CBC within normal limits, CO2 91. ASSESSMENT: 1. Right knee patellar infection with possible osteomyelitis. 2. Recurrent patellar infection. 3. History of patellar fracture and repair previously. 4. History of nicotine dependence. 5. History of Methicillin-resistant Staph aureus. 6. History of chronic back pain, degenerative joint disease. 7. History of nicotine dependence. 8. FULL CODE. RECOMMENDATIONS AND DISCUSSION: In this 46-year-old gentleman who presented with the multiple complex medical issues, we will monitor the patient closely. IV Vancomycin has been initiated. Recommend orthopedic consultation and infectious disease evaluation and possible surgery. Otherwise, the prognosis is guarded because of multiple complex medical issues. Further recommendations to follow. A copy of dictation forwarded to Dr. Doyle Davis who is the primary physician. See orders for further details. The patient also may require PICC line and prolonged IV antibiotic in view of the recurrent nature of the infection the possibility of osteomyelitis as well. I discussed with Dr. Andrea. Prognosis guarded. Further recommendations to follow. Possible surgical evaluation. Patient is cleared for surgery. [facility] HOSPITALGilberto
[2016-12-17] MEDS: HEPARIN SODIUM,PORCINE 5,000 UNIT/ML 1 ML VIAL SQ SCH (22:14)
[2016-12-18 07:17] LABS: Basophils % (A) 1 %; CH 30.9; CHCM 33.5; Eosinophils # (A) 0.2 k/uL (0-0.7); Eosinophils % (A) 5 %; HCT 38.8 % (39.0-53.0); HGB 13.2 gm/dL (13.0-17.5); Luc # (Auto) 0.08; Luc % (Auto) 2; Lymphocytes # (A) 1.3 k/uL (1.0-4.8); Lymphocytes % (A) 34 %; MCH 31.5 pg (25.0-35.0); MCV 92.7 fL (80.0-100.0); Mean Platelet Volume 6.6; Monocytes # (A) 0.2 k/uL (0-1.0); Monocytes % (A) 6 %; Neutrophils % (A) 53 %; RBC 4.19 m/uL (4.30-5.90); RDW 13.6 % (11.5-15.5); WBC 3.8 k/uL (3.8-10.6); WBC (Perox) 3.95
[2016-12-18 07:47] LABS: Anion Gap 4 mmol/L; Blood Urea Nitrogen 10 mg/dL (9-20); Calcium 8.7 mg/dL (8.4-10.2); Carbon Dioxide 27 mmol/L (22-30); Chloride 109 mmol/L (98-107); Glucose 90 mg/dL (74-99); Non-African American GFR(MDRD) >60 (>60 ml/min/1.73 sqM); Potassium 4.5 mmol/L (3.5-5.1); Sodium 140 mmol/L (137-145)
[2016-12-18] MEDS ORDERED: ONDANSETRON 4 MG/2 ML VIAL ONE (08:29)
[2016-12-18] MEDS ORDERED: HYDROmorphone (PF) 1 MG/ML ONE (08:29)
[2016-12-18] MEDS ORDERED: PROPOFOL 10 MG/ML 20 ML VIAL IV ONE (08:29)
[2016-12-18] MEDS ORDERED: LIDOCAINE 1% INJ 10MG/ML (20 ML MDV) ONE (08:29)
[2016-12-18] MEDS ORDERED: ePHEDrine 50 MG/ML 1 ML AMP ONE (08:29)
[2016-12-18] MEDS ORDERED: LACTATED RINGERS 1,000 ML IV ONE (08:29)
[2016-12-18] MEDS ORDERED: DEXAMETHASONE SOD PHOS (MDV) 100 MG/10 ML VIAL ONE (08:29)
[2016-12-18] MEDS ORDERED: MIDAZOLAM 2 MG/2 ML VIAL ONE (08:29)
[2016-12-18] MEDS ORDERED: SUCCINYLCHOLINE CHLORIDE 100 MG/5 ML SYR IV ONE (08:29)
[2016-12-18] MEDS ORDERED: fentaNYL (PF) 50 MCG/ML 2 ML AMP ONE (08:29)
[2016-12-18] MEDS: VANCOMYCIN 1,500 MG in SODIUM CHLORIDE 0.9% 250 ML IVPB SCH ×3 (08:38→23:53)
[2016-12-18] MEDS ORDERED: ceFAZolin 1,000 MG in SODIUM CHLORIDE 0.9% 1,000 ML IRRIGATION ONE (09:00)
--- NOTE | 2016-12-18 09:49 | XR ---
Limited right knee HISTORY: Hardware removal Intraoperative C-arm images document the procedure.
--- NOTE | 2016-12-18 09:50 | FL ---
Fluoroscopy HISTORY: Hardware removal 17 seconds fluoroscopy time supplied to the referring clinician. 2 intraoperative C-arm images docum ent the procedure. See dictated report from .
[2016-12-18] MEDS ORDERED: NALOXONE 0.4 MG/ML 1 ML VIAL IV PRN (10:01)
[2016-12-18] MEDS ORDERED: ONDANSETRON 4 MG/2 ML VIAL IVP PRN (10:01)
[2016-12-18] MEDS: KETOROLAC 30 MG/ML 1 ML VIAL IVP PRN ×2 (10:05→14:04)
--- NOTE | 2016-12-18 10:17 | P.OP ---
Date of Procedure: 12/18/16 Preoperative Diagnosis: Infected hardware deep right patella History of open reduction internal fixation of right patella at outside institution Healed right patellar fracture Postoperative Diagnosis: Same Procedure(s) Performed: Implants: Anesthesia: GETA Pathology: other (Deep wound culture at the level of the patella and hardware sent to microbiology) Condition: stable Disposition: PACU Indications for Procedure: Operative Findings: Description of Procedure: Preoperative diagnosis: Deep infection of right patella hardware, history of open reduction internal fixation right patella, healed right patella fracture Postoperative diagnosis: Same No apparent osteomyelitis Procedure: Irrigation and debridement with excisional debridement of denuded tissue at the right patella and removal of deep hardware from right patella with exploration of fracture and findings of stable healed fracture Surgeon: Dr. Eze Spangler.: Osman Zheng who is present that the entire the case persistence during positioning dissection exposure placement of hardware and closure Anesthesia: Gen. per Dr. Morales Estimated blood loss: Less than 50 mL with tourniquet time approximately 45 minutes Components implanted: No new implants, a tension band and K wires were removed but a small frag 3.[address] screw was [address] in place at the patella Disposition: To recovery room in good stable condition Operative indications The patient sustained a injury and suffered a fracture of his right patella approximately 5 years ago and underwent open reduction internal fixation in [facility]. He went on to have a successful healing of the fracture but was having recurrent infections with redness and irritation at the anterior patella he had been treated on muscle occasions with antibiotics with some short -term resolution of the infection which would often recur. Most recently he was treated without resolution of the infection and he presented to the hospital with us on consultation for recurrent infection without resolution despite oral antibiotics. We discussed different treatment options including the possibility of removal of his hardware with irrigation and excisional debridement at the site. We felt that the fracture had healed appropriately and that the hardware particularly the wires at the anterior aspect were causing perpetual irritation and recurrent infection at the site. We discussed the risks, occasions alternatives and benefits of his surgery including but not limited to the risk of bleeding risk of infection risk of need for further surgery risk of decreased or loss of motion loss of function recurrent fracture as well as the fact that surgery may not alleviate his symptoms was explained to him. The patient elected proceed with surgical intervention and signed informed consent Operative summary After obtaining informed consent evaluation by anesthesia, preoperative evaluation and clearance for medical service, the patient was identified and prepped appropriately and the surgical site was marked. There brought to the operating room where the given appropriate anesthesia by the anesthesia department in standard fashion without any complications. Once the anesthesia was established we were able to position the patient. The patient was placed in supine position on the operating room table being careful to pad any bony prominences and pressure points. The airway and C-spine was monitored continuously. Once patient was well positioned lower extremity was prepped and draped in normal standard sterile fashion. An appropriate keystone protocol and timeout was completed and were able to proceed with surgery. The leg was elevated and a tourniquet was elevated to 350 mmHg was utilized approximately 45 minutes to the case. An incision was made sharply through skin and subcu tissue at the midline of his right knee utilizing his prior incision site. There is a significant area of redness and fluid collection at the anterior knee measuring approximately 3 x 2 cm and upon incision of that area there was obvious purulence and drainage. We're able to dissect down further and a deep culture was taken there was evidence that the purulent tract traced down into the soft tissue and down to the hardware at the anterior patella over the coiled tension band. After deep cultures were taken by excised denuded soft tissue anteriorly there was a pocket of pus and capsulated area that appeared to be actively purulence and infected. I was able to remove this down to good stable tissue with good margins. I was able to expose the tension band and the proximal and distal K wires at the patella. The hardware was loosened. I was able to mobilize hardware further and remove the K wires in total 2 area and the tension band was cut and removed in total. The patella was checked and found to have good stability without evidence of pseudoarthrosis or further fracture. The infectious tract led directly to the hardware which was in the patella itself but the patellar bone did not appear to be denuded or erosive. There is no further pus within the bone itself. I was able to expose the lateral patella where a transverse screw had been placed. The screw was tight without any evidence of loosening. The head of the screw was significantly stripped and I tried to remove some of the bone around the head of the screw to capture the screw and try to loosen and remove the screw. However the screw was stripped to significantly and it was not able screw removed. I felt that further removal of the bone may lead to instability and further damage rather than benefit area and I felt that it was stable to leave the screw intact at the patella itself. There is no further purulence. There is no evidence of purulence within the bone itself. The wound was copiously irrigated and suctioned dry. The tissue had good margins with good potential for healing. There is no further pus or purulence. We are able to proceed with closure. The tendon and fascia was closed with # 1 Vicryl at the midline and at the lateral aspect. The knee was taken through a range of motion which showed good overall stability. Subcu tissues closed with 2-0 Vicryl and the skin was closed with lisa. The tourniquet was dropped at approximately 45 minutes. The patient was woken up extubated appropriately by anesthesia. Once stable to patient was transferred back to the postanesthesia care unit to be readmitted for antibiotic management, pain control and DVT prophylaxis medical management and monitoring and mobilization we will continue follow patient closely throughout their postoperative course.
[2016-12-18] MEDS: NICOTINE 14MG/24HR PATCH TRANSDERM SCH (10:20)
[2016-12-18] MEDS: HEPARIN SODIUM,PORCINE 5,000 UNIT/ML 1 ML VIAL SQ SCH ×2 (10:21→21:38)
[2016-12-18] MEDS: SODIUM CHLORIDE 0.9% 1,000 ML IV SCH (10:47)
[2016-12-18] MEDS: LACTATED RINGERS 1,000 ML IV SCH ×2 (11:00→23:56)
[2016-12-18] MEDS: PANTOPRAZOLE 40 MG TABLET PO SCH (11:00)
--- NOTE | 2016-12-18 13:59 | CONS ---
DATE OF CONSULTATION: 12/17/2016. REASON FOR CONSULTATION: Right knee cellulitis. HISTORY OF PRESENT ILLNESS: The patient is a 46-year-old male with a medical history significant for right patellar fracture back in 2011 for which the patient did have ORIF of the same, the patient apparently seemed to have a problem with the swelling and redness, recurrent swelling, redness of the area with infection. Has been treated with multiple courses of antibiotics, the patient says it started when he noticed a small wire coming out of his knee incision area. The patient apparently was evaluated at [facility]. The patient has been cellulitis and has been treated with oral antibiotics. However, the patient until he finishes his antibiotic therapy. The redness and the swelling will come back and the patient remember the name of the antibiotic that he recently received. Patient came to the ER last night with chief complaints of pain, swelling and redness of the right knee apparently has been going on for about 3 to 4 days. The patient denies any history of trauma. Pain is described more pounding in nature about 5 to 6 out of 10 and no radiation. There is no drainage from it. The patient denies any high-grade fever. Did have some chills though. The patient denies having any chest pain, shortness of breath, cough, no abdominal pain or any diarrhea. REVIEW OF SYSTEMS: CONSTITUTIONAL: Positive for weakness and chills. EYES: No complaint. ENT: No complaint. RESPIRATORY: No complaint. CARDIOVASCULAR: No complaint. GENITOURINARY: No complaint. GASTROINTESTINAL: No complaint. MUSCULOSKELETAL: As per HPI. INTEGUMENTARY: As per HPI. PSYCHOLOGIC: No complaint. ENDOCRINE: No complaint. NEUROLOGIC: No complaint. Past medical history significant for right patellar fracture, status post repair with current cellulitis MRSA infection right knee. PAST SURGICAL HISTORY: Right patellar fracture repair. SOCIAL HISTORY: The patient is currently an every day smoker. Denies drinking or drug use. FAMILY HISTORY: No pertinent findings were noticed. ALLERGIES: No known drug allergies. Medications currently include the patient is on: 1. Tylenol. 2. [place]. 3. Xanax. 4. Heparin. 5. Dilaudid. 6. Motrin. 7. Toradol. 8. Narcan. 9. Nicotine patch. 10. Protonix. 11. Restoril. 12. Vancomycin, pharmacy to dose. On examination, his blood pressure is 121/71 with a pulse of 64, temperature is 97.4, He is 97% on room air. General description is a middle-age male lying in bed in no distress. No tachypnea or accessory muscle of respiration use. HEENT examination no pallor or scleral icterus. Oral mucosal membranes dry. NECK: Trachea central. There is no thyromegaly. LUNGS: Unlabored breathing. Clear to auscultation anteriorly. No wheeze or crackles. HEART: S1, S2. Regular rate and rhythm. ABDOMEN: Soft, no tenderness. No guarding or rigidity. EXTREMITIES: No edema of the feet. Examination of the right knee some swelling, redness and though the redness has resolved. No drainage. NEUROLOGICAL: The patient is awake, alert, oriented x3. Mood and affect normal. LABS: Hemoglobin is 13.9, white count 7.2 with a BUN of 11, creatinine 0.90. Urine drug screen has been negative. DIAGNOSTIC IMPRESSION AND PLAN: Patient with right knee recurrent infection in a patient who did have history of right knee patellar fracture status post open reduction and internal fixation and previous history of methicillin-resistant Staphylococcus aureus infection, could be more likely same Methicillin-resistant Staph aureus in a patient whose apparently respond with improvement in redness with vancomycin therapy. PLAN: 1. Blood cultures x1. 2. Vancomycin, pharmacy to dose, target trough of 15. 3. The patient will likely need debridement of this areas and removal of all the hardware in order to completely cover this infection for which ortho is already on the case. 4. We will follow up on the clinical condition and cultures to further adjust the medication if needed. Thank you for this consultation. We will follow this patient along with you. VILMA
[2016-12-18] MEDS: HYDROcodone/APAP 5-325MG 1 EACH TAB PO PRN (19:19)
[2016-12-19] MEDS ORDERED: VANCOMYCIN TROUGH DUE 1 EACH MISC MISCELLANE ONE (07:00)
[2016-12-19 07:01] LABS: Basophils % (A) 1 %; CH 31.5; Eosinophils # (A) 0.1 k/uL (0-0.7); Eosinophils % (A) 1 %; HCT 39.9 % (39.0-53.0); HDW 2.69; HGB 13.7 gm/dL (13.0-17.5); Luc # (Auto) 0.07; Luc % (Auto) 1; Lymphocytes # (A) 1.6 k/uL (1.0-4.8); Lymphocytes % (A) 19 %; MCH 30.9 pg (25.0-35.0); MCHC 34.3 g/dL (31.0-37.0); MCV 90.3 fL (80.0-100.0); Mean Platelet Volume 6.5; Monocytes # (A) 0.4 k/uL (0-1.0); Monocytes % (A) 5 %; Neutrophils # (A) 6.2 k/uL (1.3-7.7); Neutrophils % (A) 73 %; RBC 4.42 m/uL (4.30-5.90); RDW 13.3 % (11.5-15.5); WBC 8.5 k/uL (3.8-10.6); WBC (Perox) 8.97
[2016-12-19 07:07] LABS: Anion Gap 5 mmol/L; Blood Urea Nitrogen 10 mg/dL (9-20); Calcium 8.7 mg/dL (8.4-10.2); Carbon Dioxide 26 mmol/L (22-30); Chloride 110 mmol/L (98-107); Glucose 94 mg/dL (74-99); Non-African American GFR(MDRD) >60 (>60 ml/min/1.73 sqM); Potassium 3.8 mmol/L (3.5-5.1); Sodium 141 mmol/L (137-145)
[2016-12-19] MEDS: VANCOMYCIN 1,500 MG in SODIUM CHLORIDE 0.9% 250 ML IVPB SCH ×3 (08:45→20:10)
[2016-12-19] MEDS: HYDROcodone/APAP 5-325MG 1 EACH TAB PO PRN ×2 (08:46→19:18)
[2016-12-19] MEDS: PANTOPRAZOLE 40 MG TABLET PO SCH (08:46)
[2016-12-19] MEDS: NICOTINE 14MG/24HR PATCH TRANSDERM SCH (08:47)
[2016-12-19] MEDS: HEPARIN SODIUM,PORCINE 5,000 UNIT/ML 1 ML VIAL SQ SCH ×2 (08:47→20:10)
[2016-12-19] MEDS: SODIUM CHLORIDE 0.9% 1,000 ML IV SCH (08:47)
--- NOTE | 2016-12-19 09:27 | PN ---
DATE OF SERVICE: 12/18/2016 This 46-year-old gentleman who was admitted with pain and swelling of the right knee had significant infection. The patient underwent irrigation debridement with excisional debridement of the denuded tissue of the right patella and removal of the deep hardware from the right patella with exploration of fracture and findings of stable healed fractured by Dr. Loo. The patient being closely monitored. Cultures are pending at this time. The patient on empiric antibiotics. No fever. No cough. On exam, alert and oriented x3. Pulse is 59. Blood pressure 142/78, respiration 18, temperature 98.s. Pulse ox 99% on room air. HEENT: Conjunctivae normal. NECK: No jugular venous distention. CARDIOVASCULAR: S1, S2 muffled. RESPIRATORY: Breath sounds diminished at the bases. No rhonchi, no crackles. The abdomen is soft. Legs: Status post right knee surgery. CENTRAL NERVOUS SYSTEM: No focal deficits. LABS: WBC , hemoglobin 13.2. Drug screen positive for THC. ASSESSMENT: 1. Right knee patellar infection with possible osteomyelitis, status post incision and drainage and excisional debridement as well as removal of the hardware. 2. Recurrent patellar infection. 3. History of patellar fracture and repair previously. 4. History of nicotine dependence. 5. History of Methicillin-resistant Staph aureus. 6. History of chronic back pain, degenerative joint disease. 7. History of THC. 8. History of nicotine dependence. 9. FULL CODE. RECOMMENDATIONS AND DISCUSSION: Recommend to continue current medications. Continue with broad spectrum IV antibiotics. Await cultures. Closely follow with orthopedics and infectious disease. Guarded prognosis because of multiple complex medical issues. Further recommendations to follow. [facility]
--- NOTE | 2016-12-19 11:21 | PN ---
DATE OF SERVICE: 12/18/2016 Reason for follow-up: Right knee infection. The patient is afebrile. The patient was taken to the OR this morning by Dr. Loo, status post I&D of the right knee with removal of the hardware and deep cultures. The patient tolerated the procedure. Postoperatively the patient did have some pain in the knee area but denies significant chest pain. No cough. No abdominal pain. On examination, blood pressure 121/65 with pulse of 76, temperature 98. He is 94% on room air. General description is a middle-age male lying in bed in no distress. RESPIRATORY SYSTEM: Unlabored breathing. Clear to auscultation anteriorly. HEART: S1, S2 is regular rate and rhythm. Abdomen soft. No tenderness. Right knee is currently dressed up post surgery. LABS: Hemoglobin is 13.8, white count 3.8 with a BUN of 10, creatinine 0.96. DIAGNOSTIC IMPRESSION AND PLAN: Patient with the recurrent right knee infection in a patient who does have a history of patellar fracture repair with removal of hardware status post removal of the hardware. We will await for the cultures to finalize. Continue the patient on Vancomycin in view of the deep infection. The patient will likely will need IV antibiotics on discharge.
[2016-12-19] MEDS: LACTATED RINGERS 1,000 ML IV SCH (12:11)
--- NOTE | 2016-12-19 12:37 | P.PN ---
Subjective Principal diagnosis: Infected deep hardware of the right patella Patient is a very pleasant 46-year-old male who is seen and examined at the bedside for further evaluation of his right knee after undergoing incision and drainage of the right knee with removal of hardware from previous surgery performed in 2011. Cultures were taken at the time of surgical intervention and are still pending. Patient states at the bedside his pain has been fairly well controlled at his right knee. He's been able to ambulate as tolerated on the right lower extremity. His pain has been well-controlled. Patient continues to be seen by Dr. Moseley in medicine and Dr. Larose in infectious disease. It has been discussed with the patient about possible PICC line placement. Patient states he discussed with medicine and infectious disease that he may not be able to have PICC line placement at this time due to his current living situation. He states he lives between [place], [place] and [place] and travels back and forth frequently. We discussed we will leave antibiotic protocol up to infectious disease and medicine. He currently denies any nausea, vomiting, fever, or chills. He is eating and voiding without difficulty. Objective - Vital Signs Vital signs: Vital Signs Temp 98.2 F 12/19/16 07:00 Pulse 67 12/19/16 07:00 Resp 18 12/19/16 07:00 BP 141/87 12/19/16 07:00 Pulse Ox 97 12/19/16 07:00 Intake & Output 12/18/16 12/19/16 12/19/16 18:59 06:59 18:59 Intake Total 1351 1200 Output Total 610 850 Balance 741 350 Intake: IV 1001 Intake, IV Titration 1200 Amount Lactated Ringers 1,000 ml 950 @ 100 mls/hr IV .Q10H ABA Rx#:[id number] Vancomycin 1,500 mg In 250 Sodium Chloride 0.9% 250 ml @ 125 mls/hr IVPB Q8HR ABA Rx#:[id number] Oral 350 Output: Urine 600 850 Estimated Blood Loss 10 Other: Voiding Method Toilet Toilet Toilet # Voids 1 - Exam Physical Exam: Patient is awake, alert, and oriented 3 Vital signs stable Good chest excursion with deep inspiration and expiration Abdomen soft nontender No signs or symptoms of DVT; no calf pain Dressing over the right knee is clean, dry, and intact No evidence of significant or active drainage Extensor hallucis longus, plantarflexion, and dorsiflexion positive sustained bilateral lower extremities No pain with palpation of the right calf - Labs CBC & Chem 7: 12/19/16 06:31 12/19/16 06:31 Labs: Abnormal Lab Results - Last 24 Hours (Table) 12/19/16 Range/Units 06:31 Chloride 110 H (98-107) mmol/L Microbiology - Last 24 Hours (Table) 12/17/16 22:24 Blood Culture - Preliminary Blood No Growth after 24 hours 12/18/16 09:14 Gram Stain - Preliminary Knee - Right Wound Culture - Preliminary 12/18/16 09:14 Anaerobic Culture - Preliminary Knee - Right Assessment and Plan (1) Wound infection Status: Acute (2) Chronic patellofemoral pain of right knee Status: Acute (3) Right knee pain Status: Acute Plan: Assessment: Status post incision and drainage of right knee for infected deep hardware of the right patella Right knee pain Plan: 1. Patient will currently plan to keep dressing over the right lower extremity clean, dry, and intact. We will plan to change this dressing tomorrow. He may continue to ambulate on the right lower extremity to tolerance. He is encouraged to elevate his right lower extremity and apply ice for comfort as needed for comfort while at rest. Following discharge, we will plan have the patient follow-up in approximately 10 days for further evaluation of his right knee. Marge currently remain intact at the incision site. We'll plan to remove the marge in approximately 10-14 days. 2. Patient will be continued to be followed by Dr. Larose in infectious disease and Dr. Moseley in medicine; they will continue with an appropriate plan of care in terms of antibiotic regimen including possible PICC line placement or oral regimen 3. From an orthopedic standpoint, patient is clear for discharge once cleared by infectious disease and medicine 4. Following discharge, patient may follow-up with Osman Reyes PA-C or Dr. Ha Loo at [facility] in approximately 10 days for further evaluation 5. Patient has been discussed in detail with Dr. Ha Loo and he agrees with this plan Time with Patient: Less than 30
--- NOTE | 2016-12-20 06:24 | PN ---
DATE OF SERVICE: 12/19/2016 This 46-year-old gentleman admitted with pain and swelling of the right knee, had hardware removed yesterday. No chest pain or palpitation. No fever. The cultures are pending. The patient is on broad spectrum IV antibiotics. On exam, alert and oriented x3. Pulse 80, blood pressure 124/70, respirations 16, temperature 98 degrees, pulse ox 94% on room air. HEENT: Conjunctivae normal. NECK: No jugular venous distention. CARDIOVASCULAR: S1 and S2. RESPIRATORY: Breath sounds diminished at the bases. No rhonchi, no crackles. ABDOMEN: Soft, nontender. LEGS: Status post right knee surgery. NERVOUS SYSTEM: No focal deficits. LABS: CBC with hemoglobin 13.4, sodium 141, vancomycin 22.2, THC positive. ASSESSMENT: 1. Right knee infection, possible osteomyelitis, status post incision and drainage as well as removal of the hardware partially. 2. Recurrent patellar infection. 3. History of patellar fracture with repair previously. 4. History of nicotine dependence. 5. History of methicillin-resistant Staphylococcus aureus. 6. History of chronic back pain and degenerative joint disease. 7. History of THC. 8. History of nicotine dependence. 9. FULL CODE. RECOMMENDATIONS AND DISCUSSION: I recommend to continue the current medications, continue monitoring and symptomatic treatment. Continue with broad-spectrum IV antibiotics. Closely follow with Infectious Disease. Await cultures. Possible PICC line and IV antibiotics. Closely follow with Orthopedic Surgery. Further recommendations to follow.
[2016-12-20 07:40] LABS: Anion Gap 7 mmol/L; Blood Urea Nitrogen 9 mg/dL (9-20); Calcium 8.8 mg/dL (8.4-10.2); Carbon Dioxide 26 mmol/L (22-30); Chloride 107 mmol/L (98-107); Glucose 92 mg/dL (74-99); Non-African American GFR(MDRD) >60 (>60 ml/min/1.73 sqM); Potassium 4.2 mmol/L (3.5-5.1); Sodium 140 mmol/L (137-145)
[2016-12-20 07:49] LABS: Basophils # (A) 0.1 k/uL (0-0.2); Basophils % (A) 1 %; CH 31.1; CHCM 33.7; Eosinophils # (A) 0.2 k/uL (0-0.7); Eosinophils % (A) 3 %; HCT 41.7 % (39.0-53.0); HDW 2.52; HGB 13.7 gm/dL (13.0-17.5); Luc # (Auto) 0.09; Luc % (Auto) 2; Lymphocytes # (A) 1.4 k/uL (1.0-4.8); Lymphocytes % (A) 25 %; MCH 30.4 pg (25.0-35.0); MCHC 32.8 g/dL (31.0-37.0); MCV 92.7 fL (80.0-100.0); Mean Platelet Volume 6.9; Monocytes # (A) 0.3 k/uL (0-1.0); Monocytes % (A) 6 %; Neutrophils # (A) 3.6 k/uL (1.3-7.7); Neutrophils % (A) 64 %; RDW 13.6 % (11.5-15.5); WBC 5.7 k/uL (3.8-10.6); WBC (Perox) 5.47
[2016-12-20] MEDS: SODIUM CHLORIDE 0.9% 1,000 ML IV SCH (08:26)
[2016-12-20] MEDS: PANTOPRAZOLE 40 MG TABLET PO SCH (08:26)
[2016-12-20] MEDS: NICOTINE 14MG/24HR PATCH TRANSDERM SCH (08:26)
[2016-12-20] MEDS: HEPARIN SODIUM,PORCINE 5,000 UNIT/ML 1 ML VIAL SQ SCH ×2 (08:26→21:58)
[2016-12-20] MEDS: VANCOMYCIN 1,500 MG in SODIUM CHLORIDE 0.9% 250 ML IVPB SCH ×2 (08:27→21:58)
[2016-12-20] MEDS: HYDROcodone/APAP 5-325MG 1 EACH TAB PO PRN ×2 (08:30→19:16)
--- NOTE | 2016-12-20 08:46 | P.PN ---
Subjective Principal diagnosis: Infected deep hardware of the right patella Patient is a very pleasant 46-year-old male who is seen and examined at the bedside for further evaluation of his right knee after undergoing incision and drainage of the right knee with removal of hardware from previous surgery performed in 2011. Cultures were taken at the time of surgical intervention and are still pending. Patient states at the bedside his pain has been fairly well controlled at his right knee. He's been able to ambulate as tolerated on the right lower extremity. His pain has been well-controlled. He was able to take a small shower this morning. Patient continues to be seen by Dr. Moseley in medicine and Dr. Larose in infectious disease. It has been discussed with the patient about possible PICC line placement. Patient states he discussed with medicine and infectious disease that he may not be able to have PICC line placement at this time due to his current living situation. He states he lives between [place], [place] and [place], [place] and travels back and forth frequently. We discussed we will leave antibiotic protocol up to infectious disease and medicine. He currently denies any nausea, vomiting, fever, or chills. He is eating and voiding without difficulty. He has no new complaints at the bedside this morning. Objective - Vital Signs Vital signs: Vital Signs Temp 97.3 F L 12/19/16 21:38 Pulse 68 12/19/16 21:38 Resp 17 12/19/16 21:38 BP 133/72 12/19/16 21:38 Pulse Ox 96 12/19/16 21:38 Intake & Output 12/19/16 12/20/16 12/20/16 18:59 06:59 18:59 Intake Total 600 Balance 600 Intake: Intake, IV Titration 600 Amount Sodium Chloride 0.9% 1, 350 000 ml @ 20 mls/hr IV . Q24H ABA Rx#:[id number] Vancomycin 1,500 mg In 250 Sodium Chloride 0.9% 250 ml @ 125 mls/hr IVPB Q12HR ABA Rx#:[id number] Other: Voiding Method Toilet Toilet # Voids 1 - Exam Physical Exam: Patient is awake, alert, and oriented 3 Vital signs stable Good chest excursion with deep inspiration and expiration Abdomen soft nontender No signs or symptoms of DVT; no calf pain Dressing over the right knee is removing physical examination Incision is clean, dry, and intact; no significant drainage; no increased drainage with palpation; no purulent discharge or obvious sign of infection [place] over the incision the right knee remain intact Dressing is reapplied with Adaptic, nonstick Telfa, 4 x 4's, and Lucio wrap Extensor hallucis longus, plantarflexion, and dorsiflexion positive sustained bilateral lower extremities No pain with palpation of the right calf - Labs CBC & Chem 7: 12/20/16 06:44 12/20/16 06:44 Labs: Microbiology - Last 24 Hours (Table) 12/17/16 22:24 Blood Culture - Preliminary Blood No Growth after 48 hours Assessment and Plan (1) Wound infection Status: Acute (2) Chronic patellofemoral pain of right knee Status: Acute (3) Right knee pain Status: Acute Plan: Assessment: Status post incision and drainage of right knee for infected deep hardware of the right patella Right knee pain Plan: 1. Dressing over the right knee has been removed and has been changed appropriately. We will continue with daily dressing changes over the right knee as needed with Adaptic, nonstick Telfa, 4 x 4's, and Lucio wrap. He may continue to ambulate on the right lower extremity to tolerance. He is encouraged to elevate his right lower extremity and apply ice for comfort as needed for comfort while at rest. Following discharge, we will plan have the patient follow-up in approximately 10 days for further evaluation of his right knee. Marge currently remain intact at the incision site. We'll plan to remove the marge in approximately 10-14 days. 2. Patient will be continued to be followed by Dr. Larose in infectious disease and Dr. Moseley in medicine; they will continue with an appropriate plan of care in terms of antibiotic regimen including possible PICC line placement or oral regimen 3. From an orthopedic standpoint, patient is clear for discharge once cleared by infectious disease and medicine 4. Following discharge, patient may follow-up with Osman Reyes PA-C or Dr. Ha Loo at [facility] in approximately 10 days for further evaluation 5. Patient has been discussed in detail with Dr. Ha Loo and he agrees with this plan Time with Patient: Less than 30
--- NOTE | 2016-12-20 09:56 | PN ---
DATE OF SERVICE: 12/19/2016 Reason for followup is right knee infection. INTERVAL HISTORY: The patient is afebrile. Overall pain is currently controlled. The patient denies significant chest pain or cough. No abdominal pain. There was pain in the knee area. On examination, blood pressure 124/72 with a pulse of 80, temperature 98. He is 94% on room air. General description is a middle-age male lying in bed in no distress. RESPIRATORY SYSTEM: Unlabored breathing. Clear to auscultation anteriorly. HEART: S1, S2. Regular rate and rhythm. ABDOMEN: Soft, no tenderness. Right knee is currently dressed up. No obvious drainage on the dressing. LABS: Hemoglobin 13.7, white count 8.5. BUN of 10, creatinine 0.84. Cultures are currently pending. DIAGNOSTIC IMPRESSION AND PLAN: The patient has got recurrent infection of the right knee with underlying hardware infection that has been removed. The patient still mentioned that a screw has been left in place, but no such documentation in the operative report. I discussed with Orthopedics. Continue the patient on vancomycin, awaiting for the culture to finalize to determine discharge antibiotics, should be likely a PICC line and IV in view of the deep infection. However, the patient is electing to refuse the same . I did explain to the patient going home on oral antibiotic means failure of the oral antibiotic and worsening infection. He will let us know about his decision tomorrow. VILMA
[2016-12-20] MEDS ORDERED: diphenhydrAMINE 25 MG CAP PO PRN (12:33)
--- NOTE | 2016-12-20 20:02 | PN ---
DATE OF SERVICE: 12/20/2016 This 46-year-old gentleman was admitted to the right knee pain, possible osteomyelitis orthopedic surgery. The final ID is pending. The patient on IV antibiotics. Dr. Larose and Dr. Loo is following the patient closely. No chest pain or no palpitation. No fever. On exam, the patient is alert and oriented x3. Pulse 80. Blood pressure 127/71, respiratory rate 20, temperature 98.4, pulse ox 95% on room air. HEENT: Conjunctivae normal. NECK: No jugular venous distention. CARDIOVASCULAR: S1, S2 muffled. RESPIRATORY: Breath sounds diminished at the bases. A few scattered rhonchi. ABDOMEN: Soft. Nontender. LEGS: No edema. No swelling. Nervous system: No focal deficits. LABS: WBC 5.7, hemoglobin 13.7. ASSESSMENT: 1. Right knee infection, possible osteomyelitis, status post incision and drainage as well as removal of the hardware partially. 2. Recurrent patellar infection. 3. History of patellar fracture with repair previously. 4. History of nicotine dependence. 5. History of Methicillin-resistant Staph aureus. 6. History of chronic back pain, degenerative joint disease. 7. History of THC. 8. History of nicotine dependence. 9. FULL CODE. RECOMMENDATIONS AND DISCUSSION: Recommend to continue current medications, continue with monitoring, symptomatic treatment. Otherwise, we will follow the patient closely. Continue the antibiotics. Closely follow with infectious disease and as well as orthopedic surgery. Further recommendations to follow.
--- NOTE | 2016-12-21 05:16 | PN ---
DATE OF SERVICE: 12/20/2016 Reason for followup is right knee infection. INTERVAL HISTORY: The patient is afebrile. He is currently breathing comfortably. Denies significant chest pain, shortness of breath or cough. No abdominal pain. Pain to the knee is currently improving. On examination, blood pressure 131/83 with a pulse of 62, temperature 97.4. He is 97% on room air. General description is a middle-aged male lying in bed in no distress. RESPIRATORY SYSTEM: Unlabored breathing. Clear to auscultation anteriorly. HEART: S1, S2. Regular rate and rhythm. ABDOMEN: Soft, no tenderness. Right knee overall swelling and redness has improved. stitches are still on. Wound culture presumptive MRSA with sensitivities pending. Blood culture negative. DIAGNOSTIC IMPRESSION AND PLAN: Patient with right knee infection awaiting for the culture, currently showing presumptive methicillin-resistant Staphylococcus aureus. We need to wait for the sensitivities to determine discharge antibiotic. The patient has been advised that he will likely need IV antibiotic therapy in the form of vancomycin to completely cure this infection with concern for possible hardware infection. However, the patient is reluctant to getting the PICC line. He is aware of the fact that not getting the antibiotic therapy recommended may lead to worsening of infection and further complication. Awaiting for the sensitivity to determine discharge antibiotic. VILMA
[2016-12-21 07:47] VITALS: BP 136/72; RESP 18; TEMP 98
[2016-12-21 08:29] LABS: Basophils # (A) 0.1 k/uL (0-0.2); Basophils % (A) 1 %; CHCM 33.9; Eosinophils # (A) 0.2 k/uL (0-0.7); Eosinophils % (A) 3 %; HCT 43.1 % (39.0-53.0); HDW 2.53; HGB 14.7 gm/dL (13.0-17.5); Luc # (Auto) 0.08; Luc % (Auto) 2; Lymphocytes # (A) 1.2 k/uL (1.0-4.8); Lymphocytes % (A) 24 %; MCH 31.2 pg (25.0-35.0); MCV 91.8 fL (80.0-100.0); Mean Platelet Volume 6.9; Monocytes # (A) 0.3 k/uL (0-1.0); Monocytes % (A) 5 %; Neutrophils # (A) 3.4 k/uL (1.3-7.7); Neutrophils % (A) 66 %; RDW 13.5 % (11.5-15.5); WBC 5.2 k/uL (3.8-10.6); WBC (Perox) 5.21
[2016-12-21 08:35] LABS: Anion Gap 8 mmol/L; Blood Urea Nitrogen 13 mg/dL (9-20); Calcium 9.3 mg/dL (8.4-10.2); Carbon Dioxide 24 mmol/L (22-30); Chloride 108 mmol/L (98-107); Glucose 94 mg/dL (74-99); Non-African American GFR(MDRD) >60 (>60 ml/min/1.73 sqM); Potassium 4.3 mmol/L (3.5-5.1); Sodium 140 mmol/L (137-145)
[2016-12-21] MEDS: VANCOMYCIN 1,500 MG in SODIUM CHLORIDE 0.9% 250 ML IVPB SCH (08:42)
[2016-12-21] MEDS: PANTOPRAZOLE 40 MG TABLET PO SCH (08:43)
[2016-12-21] MEDS: SODIUM CHLORIDE 0.9% 1,000 ML IV SCH (08:46)
[2016-12-21] MEDS: HEPARIN SODIUM,PORCINE 5,000 UNIT/ML 1 ML VIAL SQ SCH (08:47)
[2016-12-21] MEDS: NICOTINE 14MG/24HR PATCH TRANSDERM SCH (08:47)
[2016-12-21 08:54] VITALS: PULSE 80
--- NOTE | 2016-12-21 13:43 | PN ---
This dictation is both Progress Note and Discharge Summary. Patient is a 46-year-old admitted with right knee septic arthritis and osteomyelitis and cultures from the knee are showing staph aureus, sensitivities are still pending. REVIEW OF SYSTEMS: CARDIOVASCULAR: No chest pain, no orthopnea, no PND, no palpitations. PULMONARY: Denied any shortness of breath. No cough or hemoptysis. GASTROINTESTINAL: No diarrhea, nausea or vomiting. No abdominal pain. Normoactive bowel sounds. NEUROLOGIC: No headaches, no weakness, no numbness. Medications were reviewed. PHYSICAL EXAMINATION: Temperature 98.0, pulse of 62, respiratory rate of 18, blood pressure 18, blood of blood pressure is 136/72, saturating at 95% on room air. GENERAL: The patient is alert and oriented x3, not in any acute distress. Well developed, well nourished. HEENT: Pupils are round and equally reacting to light. EOMI. No scleral icterus. No conjunctival pallor. Normocephalic, atraumatic. No pharyngeal erythema. No thyromegaly. CARDIOVASCULAR: S1 and S2 present. No murmurs, rubs, or gallops. PULMONARY: Chest is clear to auscultation, no wheezing or crackles. ABDOMEN: Soft, nontender, nondistended, normoactive bowel sounds. No palpable organomegaly. EXTREMITIES: No cyanosis, clubbing, or pedal edema. NEUROLOGICAL: Gross neurological examination did not reveal any focal deficits. SKIN: No rashes. MUSCULOSKELETAL: Right knee postsurgically padded. LABORATORY DATA: CBC, CMP, essentially within normal limits. IV fluids will be discontinued. ASSESSMENT AND PLAN: 1. Right knee septic arthritis along with some osteomyelitis secondary to infected hardware which was removed and patient is on IV vancomycin which is continued and we awaiting cultures. 2. Recurrent patellar infections, possibly secondary to the hardware which is expected to improve as the hardware is removed as there is still a small screw which is the area from the site of infection apparently. 3. Chronic back pain. 4. Nicotine dependence. Plan is to continue with present antibiotics. We have the culture sensitivities and patient will be discharged on most probably on Bactrim. Patient probably will need Bactrim for 2 weeks.
--- NOTE | 2016-12-21 14:36 | PN ---
DATE OF SERVICE: 12/21/2016 Reason for followup is right knee infection. INTERVAL HISTORY: The patient is afebrile. Has been breathing comfortably. Patient denies significant chest pain, shortness of breath or cough. No abdominal pain. Pain to the knee is currently controlled. On examination, blood pressure is 136/72 with a pulse of 52, temperature 98, he is 95% on room air. General description is a middle-age male, lying in bed in no distress. RESPIRATORY SYSTEM: Unlabored breathing. Clear to auscultation anteriorly. HEART: S1, S2, regular rate and rhythm. ABDOMEN: Soft, no tenderness. Right knee, currently dressed. No abnormal drainage on the dressing. LABS: Hemoglobin is 14.7, white count 5.2 with a BUN of 13, creatinine 0.85. DIAGNOSTIC IMPRESSION AND PLAN: Patient with right knee infection with methicillin-resistant Staphylococcus aureus with status post removal of hardware from the patella, sensitivity to Bactrim DS. Patient has been offered vancomycin and a PICC line for which the patient continued to be refusing. He cannot get picc because of his job in [employer]. I did explain to him in layman's terms, that going with an oral antibiotic may be inadequate way to treat this infection, can lead to further complications including deeper infection in the knee. Patient is willing to take the risk. Script will be in the form of Bactrim DS twice a day for about 2 weeks with outpatient followup. Continue supportive care. VILMA
--- NOTE | 2016-12-21 15:33 | DS ---
ADDENDUM: DATE OF ADMISSION: 12/17/2016 DATE OF DISCHARGE: 12/21/2016 Patient actually was recommended to have IV vancomycin through PICC line at home, but patient declined to take that and I discussed with Dr. Larose and we are discharging patient on Bactrim double strength twice a day for 14 days. Discharge diet is regular. Activity as tolerated. Follow up with Dr. Larose in about a week and Dr. Doyle Davis in 3 to 7 days. Spent greater than 35 minutes in total discharge process.
[2016-12-22] MEDS ORDERED: VANCOMYCIN TROUGH DUE 1 EACH MISC MISCELLANE ONE (08:00)
== END 2016-12-21 13:40 | disposition home or self-care (01) | DRG 464 ==
LOC: EC 03:33 → 5MS5E 05:51
PROVIDERS: ADMIT Internal Medicine; ATTEND Internal Medicine
PROC: 0QBD0ZZ Excision of Right Patella, Open Approach (ICD-10-PCS; principal; 2016-12-18 08:00)
PROC: 0JBN0ZZ Excision of Right Lower Leg Subcutaneous Tissue and Fascia, Open Approach (ICD-10-PCS; principal; 2016-12-18 08:00)
PROC: 0QPD04Z Removal of Internal Fixation Device from Right Patella, Open Approach (ICD-10-PCS; principal; 2016-12-18 08:00)
DX: T84.69XA Infection and inflammatory reaction due to internal fixation device of other site, initial encounter (principal); M00.9 Pyogenic arthritis, unspecified; F17.200 Nicotine dependence, unspecified, uncomplicated; G89.29 Other chronic pain; Z86.14 Personal history of Methicillin resistant Staphylococcus aureus infection
CPT/HCPCS: 36415; 71010; 80048; 80202; 80306; 81003; 85025; 85652; 86140; 87040; 87070; 87075; 87077; 87186; 87205; 96374; 99285

== ENCOUNTER 2016-12-22 13:09 | Emergency (ER) | payer OTHER ==
[2016-12-22 13:12] VITALS: BP 113/62; PULSE 93; RESP 18; TEMP 97.2
--- NOTE | 2016-12-22 13:20 | ED ---
Recheck HPI - General Chief Complaint: Recheck/Abnormal Lab/Rx Stated Complaint: Knee Problems Time Seen by Provider: 12/22/16 13:12 Source: patient, RN notes reviewed Mode of arrival: ambulatory Limitations: no limitations - History of Present Illness Initial Comments: 46-year-old male presenting emergency department with chief complaint of dressing change. Patient was just discharged from the hospital yesterday and and is here to have his wound checked and dressing change. Patient hadn't open joint cleanout with hardware removal. Patient is on Bactrim for MRSA infection. Patient denies any fevers or chills no drainage. Patient states she still much improved at this time. - Related Data Previous Rx's Medication Instructions Recorded HYDROcodone/APAP 5-325MG [[place] 1 each PO Q6HR PRN #20 tab 12/20/16 5-325] Nicotine 14Mg/24Hr Patch [Habitrol] 1 patch TRANSDERM DAILY #30 patch 12/20/16 Sulfamethox-Tmp 800-160Mg [Bactrim 1 tab PO Q12HR #28 tab 12/21/16 DS 800-160 mg] Allergies Allergy/AdvReac Type Severity Reaction Status Date / Time No Known Allergies Allergy Verified 12/22/16 13:12 Review of Systems ROS Statement: Those systems with pertinent positive or pertinent negative responses have been documented in the HPI. ROS Other: All systems not noted in ROS Statement are negative. Past Medical History Past Medical History: Musculoskeletal Disorder (History right patella fracture in 2011 with open reduction internal fixation with orthopedics in [place]) Additional Past Medical History / Comment(s): chronic back pain, KNEE PAIN History of Any Multi-Drug Resistant Organisms: MRSA Date of last positivie culture/infection: 12/18/16 MDRO Source:: right knee Past Surgical History: Orthopedic Surgery Additional Past Surgical History / Comment(s): right knee Past Psychological History: No Psychological Hx Reported Smoking Status: Current every day smoker Past Alcohol Use History: None Reported, Rare Past Drug Use History: None Reported - Past Family History Mother Family Medical History: No Reported History Father Family Medical History: Musculoskeletal Disorder General Exam Limitations: no limitations General appearance: alert, in no apparent distress Respiratory exam: Present: normal lung sounds bilaterally. Absent: respiratory distress, wheezes, rales, rhonchi, stridor Cardiovascular Exam: Present: regular rate, normal rhythm, normal heart sounds. Absent: systolic murmur, diastolic murmur, rubs, gallop, clicks Extremities exam: Present: other (Right knee there is an incision with lisa in place is no purulent drainage minimal erythema no warmth patient has limited range of motion secondary to recent surgery neurovascular intact) Neurological exam: Present: alert, oriented X3, CN II-XII intact Skin exam: Present: warm, dry Course Vital Signs 12/22/16 13:10 Temperature 97.2 F L Pulse Rate 93 Respiratory 18 Rate Blood Pressure 113/62 O2 Sat by Pulse 99 Oximetry Medical Decision Making - Medical Decision Making 46 male sent it for dressing change. Patient's wound looks appropriate there is no purulent drainage. Patient has follow-up appointment tomorrow return parameters were discussed. Disposition Clinical Impression: Encounter for wound re-check, Change of dressing Disposition: HOME SELF-CARE Condition: Stable Instructions: Acute Wound Care (ED) Additional Instructions: Please return to the Emergency Department if symptoms worsen or any other concerns. Referrals: Doyle Davis MD [Primary Care Provider] - 1-2 days Time of Disposition: 13:20
== END 2016-12-22 13:36 | disposition home or self-care (01) ==
LOC: EC 13:09
DX: Z48.01 Encounter for change or removal of surgical wound dressing (principal); F17.200 Nicotine dependence, unspecified, uncomplicated
CPT/HCPCS: 99282

== ENCOUNTER 2016-12-27 01:41 | Emergency (ER) | payer OTHER ==
[2016-12-27 01:51] VITALS: RESP 18
[2016-12-27] MEDS ORDERED: SODIUM CHLORIDE 0.9% 1,000 ML IV STA (02:11)
--- NOTE | 2016-12-27 02:17 | ED ---
Lower Extremity Injury HPI - General Chief Complaint: Extremity Injury, Lower Stated Complaint: R Knee Pain Time Seen by Provider: 12/27/16 02:01 Source: patient, RN notes reviewed Mode of arrival: ambulatory Limitations: no limitations - History of Present Illness Initial Comments: 46-year-old male presents to the emergency Department chief complaint of right knee pain. Patient states that about a week ago. Dr. Loo and some repairs to remove them wearing from his right knee. Patient states his vision oral antibiotics at this time. Patient states that he continues to have some right knee pain. Patient states it hurts to move. Patient has noticed a redness or swelling. Patient states about 2 days. The pain. Patient denies any fever chills with this cough cold runny nose. Patient states he was concerned due to his symptoms today. The reevaluated. Patient states is not currently having any other symptoms at this time.Patient denies any recent fever, chills, shortness of breath, chest pain, back pain, abdominal pain, nausea vomiting, numbness or tingling, dysuria or hematuria, constipation or diarrhea, headaches or visual changes, or any other current symptoms. - Related Data Previous Rx's Medication Instructions Recorded HYDROcodone/APAP 5-325MG [[place] 1 each PO Q6HR PRN #20 tab 12/20/16 5-325] Sulfamethox-Tmp 800-160Mg [Bactrim 1 tab PO Q12HR #28 tab 12/21/16 DS 800-160 mg] Allergies Allergy/AdvReac Type Severity Reaction Status Date / Time No Known Allergies Allergy Verified 12/27/16 01:51 Review of Systems ROS Statement: Those systems with pertinent positive or pertinent negative responses have been documented in the HPI. ROS Other: All systems not noted in ROS Statement are negative. Past Medical History Past Medical History: Musculoskeletal Disorder Additional Past Medical History / Comment(s): chronic back pain, KNEE PAIN History of Any Multi-Drug Resistant Organisms: MRSA Date of last positivie culture/infection: 12/18/16 MDRO Source:: right knee Past Surgical History: Orthopedic Surgery Additional Past Surgical History / Comment(s): right knee Past Psychological History: No Psychological Hx Reported Smoking Status: Current every day smoker Past Alcohol Use History: Occasional Past Drug Use History: None Reported - Past Family History Mother Family Medical History: No Reported History Father Family Medical History: Musculoskeletal Disorder General Exam Limitations: no limitations General appearance: alert, in no apparent distress Head exam: Present: atraumatic, normocephalic, normal inspection Eye exam: Present: normal appearance, PERRL, EOMI. Absent: scleral icterus, conjunctival injection, periorbital swelling Respiratory exam: Present: normal lung sounds bilaterally. Absent: respiratory distress, wheezes, rales, rhonchi, stridor Cardiovascular Exam: Present: regular rate, normal rhythm, normal heart sounds. Absent: systolic murmur, diastolic murmur, rubs, gallop, clicks Right Upper Leg exam: Present: normal inspection, full ROM. Absent: tenderness, swelling Knee exam: Present: tenderness (Anterior aspect of the knee), swelling ( Anterior aspect of the knee). Absent: normal inspection (Marge however there is no redness or erythema surrounding the staple suture site appears to be healing well.), full ROM (Limited on full flexion due to pain) Lower Leg exam: Present: normal inspection, full ROM. Absent: tenderness, swelling Ankle exam: Present: normal inspection, full ROM. Absent: tenderness, swelling Neurovascular tendon exam: Present: no vascular compromise Neurological exam: Present: alert, oriented X3 Psychiatric exam: Present: normal affect, normal mood Course Vital Signs 12/27/16 01:47 Temperature 97.6 F Pulse Rate 83 Respiratory 18 Rate Blood Pressure 115/68 O2 Sat by Pulse 69 L Oximetry Medical Decision Making - Medical Decision Making 46-year-old male presents emergency Department with chief complaint of The right pain following surgery one week ago by Dr. Loo. At this time. Lab work was reviewed and compared to previous lab work. This time patient's CRP is normal. ESR is normal. X-ray shows some soft tissue swelling. However, the knee exam does not show any erythema, redness to the external aspect of the knee. This time we discussed needs to follow-up with his surgeon and infectious disease doctor. We discussed that he needs to continue his oral antibiotics. We discussed return parameters all his questions. He stated he understood and he does have anorexia home. This time he will be discharged. - Lab Data Result diagrams: 12/27/16 02:30 12/27/16 02:30 Lab Results 12/27/16 12/27/16 Range/Units 02:30 02:30 WBC 4.8 (3.8-10.6) k/uL RBC 4.31 (4.30-5.90) m/uL Hgb 13.2 (13.0-17.5) gm/dL Hct 40.0 (39.0-53.0) % MCV 92.7 (80.0-100.0) fL MCH 30.6 (25.0-35.0) pg MCHC 33.0 (31.0-37.0) g/dL RDW 13.5 (11.5-15.5) % Plt Count 242 (150-450) k/uL Neutrophils % 59 % Lymphocytes % 29 % Monocytes % 5 % Eosinophils % 5 % Basophils % 1 % Neutrophils # 2.8 (1.3-7.7) k/uL Lymphocytes # 1.4 (1.0-4.8) k/uL Monocytes # 0.3 (0-1.0) k/uL Eosinophils # 0.2 (0-0.7) k/uL Basophils # 0.1 (0-0.2) k/uL ESR 7 (0-15) mm/hr Sodium 142 (137-145) mmol/L Potassium 4.1 (3.5-5.1) mmol/L Chloride 110 H (98-107) mmol/L Carbon Dioxide 23 (22-30) mmol/L Anion Gap 9 mmol/L BUN 13 (9-20) mg/dL Creatinine 1.20 (0.66-1.25) mg/dL Est GFR (MDRD) Af Amer >60 (>60 ml/min/1.73 sqM) Est GFR (MDRD) Non-Af >60 (>60 ml/min/1.73 sqM) Glucose 91 (74-99) mg/dL Calcium 9.0 (8.4-10.2) mg/dL Total Bilirubin 0.1 L (0.2-1.3) mg/dL AST 20 (17-59) U/L ALT 32 (21-72) U/L Alkaline Phosphatase 87 (38-126) U/L C-Reactive Protein <5.0 (<10.0) mg/L Total Protein 5.4 L (6.3-8.2) g/dL Albumin 3.4 L (3.5-5.0) g/dL - Radiology Data Radiology results: report reviewed, image reviewed Disposition Clinical Impression: Right knee pain Disposition: HOME SELF-CARE Condition: Stable Instructions: Knee Pain (ED) Additional Instructions: Please use medication as discussed. Please follow up with family doctor if symptoms have not improved over the next two days. Please return to the emergency room if your symptoms increase or worsen or for any other concerns. Referrals: Doyle Davis MD [Primary Care Provider] - 1-2 days Time of Disposition: 03:54
[2016-12-27 02:51] LABS: Basophils # (A) 0.1 k/uL (0-0.2); Basophils % (A) 1 %; CHCM 33.6; Eosinophils # (A) 0.2 k/uL (0-0.7); Eosinophils % (A) 5 %; HDW 2.45; HGB 13.2 gm/dL (13.0-17.5); Luc # (Auto) 0.07; Luc % (Auto) 2; Lymphocytes # (A) 1.4 k/uL (1.0-4.8); Lymphocytes % (A) 29 %; MCH 30.6 pg (25.0-35.0); MCV 92.7 fL (80.0-100.0); Mean Platelet Volume 6.8; Monocytes # (A) 0.3 k/uL (0-1.0); Monocytes % (A) 5 %; Neutrophils # (A) 2.8 k/uL (1.3-7.7); Neutrophils % (A) 59 %; RBC 4.31 m/uL (4.30-5.90); RDW 13.5 % (11.5-15.5); WBC 4.8 k/uL (3.8-10.6); WBC (Perox) 5.04
[2016-12-27 03:04] LABS: ALT 32 U/L (21-72); AST 20 U/L (17-59); Alkaline Phosphatase 87 U/L (38-126); Anion Gap 9 mmol/L; Blood Urea Nitrogen 13 mg/dL (9-20); C Reactive Protein <5.0 mg/L (<10.0); Carbon Dioxide 23 mmol/L (22-30); Chloride 110 mmol/L (98-107); Glucose 91 mg/dL (74-99); Non-African American GFR(MDRD) >60 (>60 ml/min/1.73 sqM); Potassium 4.1 mmol/L (3.5-5.1); Sodium 142 mmol/L (137-145); Total Bilirubin 0.1 mg/dL (0.2-1.3); Total Protein 5.4 g/dL (6.3-8.2)
--- NOTE | 2016-12-27 03:17 | XR ---
EXAM: XR Right Knee, 3 views CLINICAL HISTORY: Reason: right knee pain, surgery 1 week ago removal of infected hardware TECHNIQUE: Three views of the right knee. COMPARISON: Right knee radiographs on 12/17/2016 FINDINGS: Bones/joints: Interval postoperative changes of the knee with removal of the patellar pins and wires. Patellar screw remains in place. No acute fracture or dislocation identified. Osteopenia. Stable mild degenerative changes of the right knee joint, most prominent in the patellofemoral joint. Quadriceps enthesophytes again noted. Persistent small joint effusion. No bony lesion. Soft tissues: Skin lisa along the anterior knee. Prepatellar soft tissue swelling. IMPRESSION: Interval postoperative changes of the right knee with removal of the patellar pins and wires. Patellar screw remains in place without evidence of hardware complication. No acute fracture or dislocation. Persistent prepatellar soft tissue swelling with skin lisa in place may be related to recent surgery. Superimposed infection cannot be excluded. Stable small knee joint effusion.
[2016-12-27] MEDS ORDERED: KETOROLAC 30 MG/ML 1 ML VIAL IVP STA (03:40)
[2016-12-27 03:46] LABS: Erythrocyte Sedimentation Rate 7 mm/hr (0-15)
[2016-12-27 04:07] VITALS: BP 127/79; PULSE 67; TEMP 97.1
== END 2016-12-27 04:06 | disposition home or self-care (01) ==
LOC: EC 01:41
DX: M25.561 Pain in right knee (principal); F17.200 Nicotine dependence, unspecified, uncomplicated; Z86.14 Personal history of Methicillin resistant Staphylococcus aureus infection; Z98.890 Other specified postprocedural states
CPT/HCPCS: 36415; 80053; 85652; 85025; 86140; 87040; 73562; 99283; 96374; 96361; J1885

== ENCOUNTER 2018-12-06 07:59 | Emergency (ER) | payer OTHER ==
[2018-12-06 08:06] VITALS: BP 115/74; PULSE 77; RESP 18; TEMP 97.4
[2018-12-06] MEDS ORDERED: IBUPROFEN 600 MG TAB PO STA (08:19)
--- NOTE | 2018-12-06 08:24 | ED ---
General Adult HPI - General Chief complaint: Extremity Problem,Nontraumatic Stated complaint: Rt knee injury Time Seen by Provider: 12/06/18 08:10 Source: patient, RN notes reviewed, old records reviewed Mode of arrival: ambulatory Limitations: no limitations - History of Present Illness Initial comments: 48-year-old male presents for evaluation of right knee pain. Patient states he's had worsening anterior knee pain for the past one month. He has been attempting to increase his physical activity including running over the past 3 months. Denies any specific injury to the knee. He had previous orthopedic repair of fractured patella with wiring and he did have subsequent infection at this time. Denies any constitutional symptoms, no fever or chills. States this is completely different from previous infected knee. Pain is worse with overuse. - Related Data Previous Rx's Medication Instructions Recorded HYDROcodone/APAP 5-325MG [[place] 1 each PO Q6HR PRN #20 tab 12/20/16 5-325] Sulfamethox-Tmp 800-160Mg [Bactrim 1 tab PO Q12HR #28 tab 12/21/16 DS 800-160 mg] Ibuprofen [Motrin] 600 mg PO Q8HR PRN #24 tab 12/06/18 Allergies Allergy/AdvReac Type Severity Reaction Status Date / Time No Known Allergies Allergy Verified 12/06/18 08:06 Review of Systems ROS Statement: Those systems with pertinent positive or pertinent negative responses have been documented in the HPI. ROS Other: All systems not noted in ROS Statement are negative. Past Medical History Past Medical History: Musculoskeletal Disorder Additional Past Medical History / Comment(s): chronic back pain, KNEE PAIN History of Any Multi-Drug Resistant Organisms: MRSA Date of last positivie culture/infection: 12/18/16 MDRO Source:: right knee Past Surgical History: Orthopedic Surgery Additional Past Surgical History / Comment(s): right knee Past Psychological History: No Psychological Hx Reported Smoking Status: Current every day smoker Past Alcohol Use History: Occasional Past Drug Use History: None Reported - Past Family History Mother Family Medical History: No Reported History Father Family Medical History: Musculoskeletal Disorder General Exam Limitations: no limitations General appearance: alert, in no apparent distress Head exam: Present: atraumatic, normocephalic Eye exam: Present: normal appearance, PERRL ENT exam: Present: normal exam Neck exam: Present: normal inspection. Absent: tenderness, meningismus Respiratory exam: Present: normal lung sounds bilaterally. Absent: respiratory distress Cardiovascular Exam: Present: regular rate, normal rhythm GI/Abdominal exam: Present: soft. Absent: distended, tenderness Extremities exam: Present: other (Right lower extremity, normal range of motion at the hip, knee, ankle. Distal pulses intact, he has midline incision over the right knee, this is well-healed. No overlying signs of infection, no cellulitis, no effusion or warmth to this knee.) Neurological exam: Present: alert, oriented X3 Psychiatric exam: Present: normal affect, normal mood Skin exam: Present: warm, dry, intact. Absent: cyanosis, diaphoretic Course Vital Signs 12/06/18 08:04 Temperature 97.4 F L Pulse Rate 77 Respiratory 18 Rate Blood Pressure 115/74 O2 Sat by Pulse 99 Oximetry Medical Decision Making - Medical Decision Making 48-year-old male with one month of worsening right knee pain with overuse. X-ray negative for fracture or dislocation. Previous surgical changes with fixation of the patella. Patient will reduce use, will take Motrin for pain and inflammation. Will follow up with orthopedics. Patient will return with development of fever, redness in the knee or swelling. Disposition Clinical Impression: Knee pain, chronic Disposition: HOME SELF-CARE Condition: Good Instructions (If sedation given, give patient instructions): Osteoarthritis (ED), Knee Sprain (ED) Prescriptions: Ibuprofen [Motrin] 600 mg PO Q8HR PRN #24 tab PRN Reason: Pain Is patient prescribed a controlled substance at d/c from ED?: No Referrals: None,Stated [Primary Care Provider] - 1-2 days Amanuel Loo DO [Doctor of Osteopathic Medicine] - 1-2 days Time of Disposition: 09:05
--- NOTE | 2018-12-06 08:37 | XR ---
EXAMINATION TYPE: XR knee complete RT DATE OF EXAM: 12/06/2018 COMPARISON: 66 HISTORY: Pain TECHNIQUE: Three views are submitted. FINDINGS: Joint spaces are preserved. Osseous structures are intact. No acute fracture seen. Postsurgical ch anges with diffuse osteopenia. There is arthropathy of the patellofemoral joint and medial compartmen t knee joint. Small suprapatellar bursal fluid collection. IMPRESSION: 1. No acute fracture or dislocation. 2. Postsurgical change. 3. Small suprapatellar bursal fluid collection 4. Osteoarthritis.
== END 2018-12-06 08:51 | disposition home or self-care (01) ==
LOC: EC 07:59
DX: G89.29 Other chronic pain (principal); M25.561 Pain in right knee; F17.200 Nicotine dependence, unspecified, uncomplicated; Z98.890 Other specified postprocedural states; Z87.81 Personal history of (healed) traumatic fracture; Z86.14 Personal history of Methicillin resistant Staphylococcus aureus infection
CPT/HCPCS: 99284

== ENCOUNTER 2018-12-15 13:07 | Emergency (ER) | payer OTHER ==
[2018-12-15 13:17] VITALS: RESP 16; TEMP 97.5
[2018-12-15] MEDS ORDERED: KETOROLAC 60 MG/2 ML VIAL IM STA (13:48)
[2018-12-15] MEDS ORDERED: ACET/COD 300 MG/30 MG STARTER PACK 6 TAB BTL PO STA (13:48)
--- NOTE | 2018-12-15 14:01 | ED ---
General Adult HPI - General Chief complaint: Extremity Problem,Nontraumatic Stated complaint: RT KNEE PAIN Time Seen by Provider: 12/15/18 13:21 Source: patient, RN notes reviewed Mode of arrival: ambulatory Limitations: no limitations - History of Present Illness Initial comments: Patient is a pleasant 48-year-old male presenting to the emergency Department with right knee pain. Patient does have chronic right knee pain. Symptoms have worsened over the past 1-4 months. Patient has tried running and doing lunges however this seems to be making symptoms worse. Patient was in the emergency department recently with reported normal x-ray. Patient was placed on anti- inflammatories states that is not doing "nomi ". Patient requests something str onger. No redness. No swelling. No fevers. Patient states he has tried to get in to see his orthopedic doctor however he needs a referral. Patient was trying to get in to see a primary care physician to get a referral. - Related Data Previous Rx's Medication Instructions Recorded HYDROcodone/APAP 5-325MG [[place] 1 each PO Q6HR PRN #20 tab 12/20/16 5-325] Sulfamethox-Tmp 800-160Mg [Bactrim 1 tab PO Q12HR #28 tab 12/21/16 DS 800-160 mg] Ibuprofen [Motrin] 600 mg PO Q8HR PRN #24 tab 12/06/18 Allergies Allergy/AdvReac Type Severity Reaction Status Date / Time No Known Allergies Allergy Verified 12/15/18 13:17 Review of Systems ROS Statement: Those systems with pertinent positive or pertinent negative responses have been documented in the HPI. ROS Other: All systems not noted in ROS Statement are negative. Constitutional: Denies: fever Respiratory: Denies: dyspnea Cardiovascular: Denies: chest pain Musculoskeletal: Reports: as per HPI, arthralgia Past Medical History Past Medical History: Musculoskeletal Disorder Additional Past Medical History / Comment(s): chronic back pain, KNEE PAIN History of Any Multi-Drug Resistant Organisms: MRSA Date of last positivie culture/infection: 12/18/16 MDRO Source:: right knee Past Surgical History: Orthopedic Surgery Additional Past Surgical History / Comment(s): right knee Past Psychological History: No Psychological Hx Reported Smoking Status: Current every day smoker Past Alcohol Use History: Occasional Past Drug Use History: None Reported - Past Family History Mother Family Medical History: No Reported History Father Family Medical History: Musculoskeletal Disorder General Exam Limitations: no limitations General appearance: alert, in no apparent distress Head exam: Present: normocephalic Respiratory exam: Present: normal lung sounds bilaterally Cardiovascular Exam: Present: regular rate, normal rhythm Expanded Peripheral pulses: 2+: Posterior Tibialis (R), Dorsalis Pedis (R) GI/Abdominal exam: Present: soft. Absent: tenderness Extremities exam: Present: other (Right knee without warmth or tenderness or swelling. No significant pain with range of motion. No tenderness on exam. Distally the extremity is neurovascular intact.) Neurological exam: Present: alert Psychiatric exam: Present: normal affect, normal mood Skin exam: Present: normal color. Absent: rash Course Vital Signs 12/15/18 13:14 Temperature 97.5 F L Pulse Rate 77 Respiratory 16 Rate Blood Pressure 124/79 O2 Sat by Pulse 97 Oximetry Medical Decision Making - Medical Decision Making Patient states he does have a knee immobilizer that he can wear. Patient is advised to avoid lunges and running at this time. Disposition Clinical Impression: Knee pain, chronic Disposition: HOME SELF-CARE Condition: Stable Instructions (If sedation given, give patient instructions): Knee Pain (ED) Additional Instructions: Please follow-up with primary care physician and orthopedics in the beginning of the week. Please use your knee immobilizer. Continue anti-inflammatories. Return for swelling, redness, fever, worsening or changing symptoms or other concerns. Is patient prescribed a controlled substance at d/c from ED?: No Referrals: Uriel Foster MD [STAFF PHYSICIAN] - 1-2 days Amanuel Loo DO [Doctor of Osteopathic Medicine] - 1-2 days Time of Disposition: 14:01
[2018-12-15 14:45] VITALS: BP 132/82; PULSE 69
== END 2018-12-15 14:40 | disposition home or self-care (01) ==
LOC: EC 13:07
DX: G89.29 Other chronic pain (principal); M25.561 Pain in right knee; F17.200 Nicotine dependence, unspecified, uncomplicated
CPT/HCPCS: 99283; 96372; J1885

== ENCOUNTER 2018-12-20 00:17 | Emergency (ER) | payer OTHER ==
[2018-12-20] MEDS ORDERED: predniSONE 50 MG TAB PO STA (01:28)
[2018-12-20] MEDS ORDERED: IPRATROPIUM-ALBUTEROL 3 ML NEB INHALATION STA (01:28)
[2018-12-20] MEDS ORDERED: ONDANSETRON ODT 4 MG TAB PO STA (01:28)
--- NOTE | 2018-12-20 01:51 | XR ---
EXAM: XR Chest, 2 Views CLINICAL HISTORY: ITS.REASON XR Reason: Pain TECHNIQUE: Frontal and lateral views of the chest. COMPARISON: 12/17/16 FINDINGS: Lungs: Unremarkable. No consolidation. Pleural space: Unremarkable. No pneumothorax. Heart: Unremarkable. No cardiomegaly. Mediastinum: Unremarkable. Bones/joints: Unremarkable. IMPRESSION: No acute findings or substantial change
[2018-12-20 01:56] VITALS: PULSE 88
--- NOTE | 2018-12-20 02:27 | ED ---
URI HPI - General Chief Complaint: Upper Respiratory Infection Stated Complaint: ENT, knee pain Time Seen by Provider: 12/20/18 01:13 Source: patient Mode of arrival: ambulatory Limitations: no limitations - History of Present Illness Initial Comments: 48-year-old male patient presented to the emergency department today for evaluation of upper respiratory symptoms. Patient states he has had cough and nasal congestion for the last 2 days. Patient states this is causing him to become short of breath. Patient states had some intermittent lightheadedness with this. Patient does admit to smoking cigarettes. Denies any fever or chills. States he has had some mild nausea. Denies chest pain. Patient denies any recent rash, abdominal pain, vomiting, diarrhea, constipation, back pain, numbness, tingling, weakness, hematuria, dysuria, urinary urgency, urinary frequency, headache, visual changes, or any other complaints. - Related Data Previous Rx's Medication Instructions Recorded Ibuprofen [Motrin] 600 mg PO Q8HR PRN #24 tab 12/06/18 Albuterol Sulfate [Proair Hfa] 1 - 2 puff INHALATION Q6HR PRN #1 12/20/18 inhaler Promethazine 6.25MG/5Ml [Phenergan 6.25 mg PO Q6H #100 ml 12/20/18 Syrup] predniSONE 50 mg PO DAILY #5 tablet 12/20/18 Allergies Allergy/AdvReac Type Severity Reaction Status Date / Time No Known Allergies Allergy Verified 12/20/18 01:00 Review of Systems ROS Statement: Those systems with pertinent positive or pertinent negative responses have been documented in the HPI. ROS Other: All systems not noted in ROS Statement are negative. Past Medical History Past Medical History: Musculoskeletal Disorder Additional Past Medical History / Comment(s): chronic back pain, KNEE PAIN History of Any Multi-Drug Resistant Organisms: MRSA Date of last positivie culture/infection: 12/18/16 MDRO Source:: right knee Past Surgical History: Orthopedic Surgery Additional Past Surgical History / Comment(s): right knee Past Psychological History: No Psychological Hx Reported Smoking Status: Current every day smoker Past Alcohol Use History: Occasional Past Drug Use History: None Reported - Past Family History Mother Family Medical History: No Reported History Father Family Medical History: Musculoskeletal Disorder General Exam Limitations: no limitations General appearance: alert, in no apparent distress, other (Physical well- developed, well-nourished adult male patient in no acute distress. Vital signs upon presentation are temperature 98.0F, pulse 85, respirations 14, blood pressure 110/67, pulse ox 100% on room air.) Eye exam: Present: normal appearance, PERRL, EOMI. Absent: scleral icterus, conjunctival injection, periorbital swelling ENT exam: Present: normal exam, normal oropharynx, mucous membranes moist Respiratory exam: Present: normal lung sounds bilaterally. Absent: respiratory distress, wheezes, rales, rhonchi, stridor Cardiovascular Exam: Present: regular rate, normal rhythm, normal heart sounds. Absent: systolic murmur, diastolic murmur, rubs, gallop, clicks GI/Abdominal exam: Present: soft, normal bowel sounds. Absent: distended, tenderness, guarding, rebound, rigid Neurological exam: Present: alert, oriented X3, CN II-XII intact, other (Strength in all 4 extremities is 5/5.) Psychiatric exam: Present: normal affect, normal mood Skin exam: Present: warm, dry, intact, normal color. Absent: rash Course Vital Signs 12/20/18 12/20/18 12/20/18 00:55 01:51 01:56 Temperature 98.0 F Pulse Rate 85 85 88 Respiratory 14 Rate Blood Pressure 110/67 O2 Sat by Pulse 100 Oximetry 12/20/18 12/20/18 03:37 03:38 Temperature 97.7 F Pulse Rate 88 Respiratory 20 18 Rate Blood Pressure 123/70 O2 Sat by Pulse 100 Oximetry Medical Decision Making - Medical Decision Making 48-year-old male patient presented to the emergency department today for evaluation of upper respiratory symptoms. Physical examination reveals clear equal lung sounds. Patient does admit to being a smoker. Chest x-ray showed no acute cardio pulmonary process. He is afebrile. Vital signs are stable. We did discuss diagnosis of acute bronchitis. He'll be treated with Phenergan, prednisone, and Pro Air inhaler. Instructed to follow-up with his primary care physician for recheck in 1-2 days. Return parameters were discussed in detail. He verbalizes understanding and agrees with this plan. - Radiology Data Radiology results: report reviewed, image reviewed Two-view x-ray of the chest is obtained. Report was reviewed in its entirety. Impression by Dr. Reynolds shows no acute findings or substantial change. Disposition Clinical Impression: Viral upper respiratory illness Disposition: HOME SELF-CARE Condition: Good Instructions (If sedation given, give patient instructions): Upper Respiratory Infection (ED) Additional Instructions: Take medications as directed. Follow-up through primary care physician for recheck in 1-2 days. Return to the emergency department immediately for any new, worsening, or concerning symptoms. Prescriptions: Promethazine 6.25MG/5Ml [Phenergan Syrup] 6.25 mg PO Q6H #100 ml predniSONE 50 mg PO DAILY #5 tablet Albuterol Sulfate [Proair Hfa] 1 - 2 puff INHALATION Q6HR PRN #1 inhaler PRN Reason: Shortness Of Breath Is patient prescribed a controlled substance at d/c from ED?: No Referrals: None,Stated [Primary Care Provider] - 1-2 days Time of Disposition: 02:27
[2018-12-20 03:43] VITALS: BP 123/70; RESP 18; TEMP 97.7
== END 2018-12-20 03:43 | disposition home or self-care (01) ==
LOC: EC 00:17
DX: J39.8 Other specified diseases of upper respiratory tract (principal); R11.0 Nausea; F17.210 Nicotine dependence, cigarettes, uncomplicated; Z86.14 Personal history of Methicillin resistant Staphylococcus aureus infection
CPT/HCPCS: 71046; 94640; 99283

== ENCOUNTER 2018-12-23 01:10 | Emergency (ER) | payer OTHER ==
[2018-12-23 01:22] VITALS: TEMP 100.8
--- NOTE | 2018-12-23 02:31 | XR ---
EXAM: XR Chest, 2 Views CLINICAL HISTORY: cough/fevers TECHNIQUE: Frontal and lateral views of the chest. COMPARISON: 12/20/2018 FINDINGS: Lungs: The pulmonary vasculature demonstrates no significant radiographic abnormality. No consolidation. Pleural space: No pleural effusion. No pneumothorax. Heart: Unremarkable. No cardiomegaly. Mediastinum: Unremarkable. Bones/joints: Unremarkable. Tubes, lines and devices: Overlying EKG artifact. IMPRESSION: No focal consolidation or acute cardiopulmonary process identified.
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
[2018-12-23 03:55] VITALS: BP 119/82; PULSE 102; RESP 18
== END 2018-12-23 03:54 | disposition home or self-care (01) ==
LOC: EC 01:10
DX: Z04.71 Encounter for examination and observation following alleged adult physical abuse (principal); F17.200 Nicotine dependence, unspecified, uncomplicated; Y04.0XXA Assault by unarmed brawl or fight, initial encounter
CPT/HCPCS: 71046; 93005; 99284

== ENCOUNTER 2018-12-25 09:08 | Emergency (ER) | payer OTHER ==
[2018-12-25 09:15] VITALS: RESP 18
[2018-12-25] MEDS ORDERED: IPRATROPIUM-ALBUTEROL 3 ML NEB INHALATION STA (09:49)
--- NOTE | 2018-12-25 09:49 | ED ---
General Adult HPI - General Chief complaint: Upper Respiratory Infection Stated complaint: COUGH/COLD SYMPTOMS Time Seen by Provider: 12/25/18 09:26 Source: patient, RN notes reviewed Mode of arrival: ambulatory Limitations: no limitations - History of Present Illness Initial comments: Patient is a pleasant 48-year-old male presenting to the emergency Department with cough. Symptoms have been occurring for the last one to 2 weeks. Patient was in the emergency department and started on steroids without improvement of symptoms. Cough has productive green sputum. Patient is unclear if he has fevers. Patient is a smoker however has not smoked much recently secondary to cough. No leg pain or leg swelling. Patient also has sinus congestion. - Related Data Previous Rx's Medication Instructions Recorded Albuterol Nebulized [Ventolin 2.5 mg INHALATION QID PRN #125 nebu 12/25/18 Nebulized] Azithromycin [Zithromax Z-pack] 250 mg PO DIRECTED #6 tab 12/25/18 Allergies Allergy/AdvReac Type Severity Reaction Status Date / Time No Known Allergies Allergy Verified 12/25/18 09:27 Review of Systems ROS Statement: Those systems with pertinent positive or pertinent negative responses have been documented in the HPI. ROS Other: All systems not noted in ROS Statement are negative. Constitutional: Reports: as per HPI Eyes: Denies: eye pain ENT: Denies: ear pain Respiratory: Reports: cough Cardiovascular: Denies: chest pain Endocrine: Denies: fatigue Gastrointestinal: Denies: abdominal pain Genitourinary: Denies: dysuria Musculoskeletal: Denies: back pain Skin: Denies: rash Neurological: Denies: weakness Psychiatric: Denies: anxiety Past Medical History Past Medical History: Musculoskeletal Disorder Additional Past Medical History / Comment(s): chronic back pain, KNEE PAIN History of Any Multi-Drug Resistant Organisms: MRSA Date of last positivie culture/infection: 12/18/16 MDRO Source:: right knee Past Surgical History: Orthopedic Surgery Additional Past Surgical History / Comment(s): right knee Past Psychological History: No Psychological Hx Reported Smoking Status: Current every day smoker Past Alcohol Use History: Occasional Past Drug Use History: None Reported - Past Family History Mother Family Medical History: No Reported History Father Family Medical History: Musculoskeletal Disorder General Exam Limitations: no limitations General appearance: alert, in no apparent distress Head exam: Present: atraumatic Eye exam: Present: normal appearance, PERRL ENT exam: Present: normal oropharynx Neck exam: Present: normal inspection Respiratory exam: Present: wheezes (Minimal expiratory wheeze) Cardiovascular Exam: Present: regular rate, normal rhythm GI/Abdominal exam: Present: soft. Absent: tenderness Extremities exam: Present: normal inspection. Absent: pedal edema, calf tenderness Neurological exam: Present: alert Psychiatric exam: Present: normal affect, normal mood Skin exam: Present: normal color Course Vital Signs 12/25/18 12/25/18 09:12 10:13 Temperature 99.5 F Pulse Rate 92 84 Respiratory 18 Rate Blood Pressure 139/79 O2 Sat by Pulse 98 Oximetry Medical Decision Making - Medical Decision Making Patient reevaluated and does feel somewhat better following nebulizer. Patient updated on results and need for follow-up. - Radiology Data Radiology results: image reviewed (Chest x-ray shows no acute process) Disposition Clinical Impression: Bronchitis Disposition: HOME SELF-CARE Condition: Stable Instructions (If sedation given, give patient instructions): Acute Bronchitis (ED) Additional Instructions: Please follow-up with primary care physician in the next couple days for recheck. Return for uncontrolled fevers, difficulty breathing, worsening or change in symptoms or other concerns. Prescriptions: Albuterol Nebulized [Ventolin Nebulized] 2.5 mg INHALATION QID PRN #125 nebu PRN Reason: Dyspnea Azithromycin [Zithromax Z-pack] 250 mg PO DIRECTED #6 tab Is patient prescribed a controlled substance at d/c from ED?: No Referrals: Patti Joseph MD [REFERRING] - 1-2 days Time of Disposition: 10:57
--- NOTE | 2018-12-25 10:41 | XR ---
EXAMINATION TYPE: XR chest 2V DATE OF EXAM: 12/25/2018 COMPARISON: Prior chest x-ray 12/23/2018 HISTORY: Cough and congestion TECHNIQUE: Frontal and lateral views of the chest are obtained. FINDINGS: There is no focal air space opacity, pleural effusion, or pneumothorax seen. The cardiac silhouette size is within normal limits. The osseous structures are intact. Prominent lung volumes suggests underlying COPD. IMPRESSION: No acute cardiopulmonary process.
[2018-12-25] MEDS ORDERED: ACETAMINOPHEN TAB 500 MG TAB PO STA (10:52)
[2018-12-25 11:10] VITALS: BP 131/68; PULSE 73; TEMP 99.2
== END 2018-12-25 11:11 | disposition home or self-care (01) ==
LOC: EC 09:08
DX: J40 Bronchitis, not specified as acute or chronic (principal); F17.200 Nicotine dependence, unspecified, uncomplicated; Z86.14 Personal history of Methicillin resistant Staphylococcus aureus infection
CPT/HCPCS: 71046; 94640; 99283